=== PATIENT | female | born 1990 | race African-American/Black ===

== ENCOUNTER 2016-07-26 16:18 | Emergency (ER) | payer OTHER ==
[2016-07-26 16:50] VITALS: BMI 37.7
[2016-07-26] MEDS ORDERED: SODIUM CHLORIDE 1,000 ML IV STA (17:30)
[2016-07-26] MEDS ORDERED: ONDANSETRON 4 MG/2 ML VIAL IVPB ONE (17:30)
--- NOTE | 2016-07-26 17:30 | PDOC ---
History of Present Illness - History of Present Illness Initial Comments: 07/26/16 18:13 The patient is a 26 year old female, 15 week . , with no significant past medical history, who presents to the emergency department with headache, vomiting, diarrhea, and abdominal pain for 4 days. She reports her headache is diffuse an intermittent. She reports periumbilical abdominal pain which is constant and non-radiating. 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 She states that neither of her children are sick at home. The patient denies vaginal bleeding. She denies chest pain, shortness of breath, headache and dizziness. She denies fever, chills, nausea, vomit, diarrhea and constipation. She denies dysuria, frequency, urgency and hematuria. Allergies: percocet, shrimp, chocolate Past surgical history: cholecysectomy (2012), Knee (2013, Bunion (2013) Social history: denies toxic habits PCP - Dr. Ho ([facility]) <Sunitha Pimentel - Last Filed: 07/26/16 18:51> <Keira Gerber - Last Filed: 07/26/16 19:26> - General Chief Complaint: Pain, Acute Stated Complaint: 20wks/ABD PAIN/VOMITING Time Seen by Provider: 07/26/16 17:19 Past History <Sunitha Pimentel - Last Filed: 07/26/16 18:51> - Past Medical History Asthma: No Cancer: No Cardiac Disorders: No Diabetes: No HTN: No Psychiatric Problems: Yes (PTSD, Anxiety, Depression) Seizures: No Thyroid Disease: No - Surgical History Cholecystectomy: Yes - Reproductive History (#): 3 Para: 2 Therapeutic (s) & number: No - Psycho/Social/Smoking Cessation Hx Anxiety: Yes Suicidal Ideation: No Smoking History: Never smoked Have you smoked in the past 12 months: No Hx Alcohol Use: No Drug/Substance Use Hx: No Substance Use Type: None Hx Substance Use Treatment: No <Keira Gerber - Last Filed: 07/26/16 19:26> - Past Medical History Allergies/Adverse Reactions: Allergies Allergy/AdvReac Type Severity Reaction Status Date / Time acetaminophen [From Percocet] Allergy Verified 07/26/16 16:50 chocolate flavor Allergy Verified 07/26/16 16:50 oxycodone HCl [From Percocet] Allergy Verified 07/26/16 16:50 shrimp Allergy Verified 07/26/16 16:50 Home Medications: Ambulatory Orders Fluoxetine HCl [Prozac] 40 mg PO DAILY 08/26/15 Quetiapine Fumarate [Seroquel -] 100 mg PO HS 08/26/15 Risperidone [Risperdal] 0.5 mg PO HS 08/26/15 Abd/GI Specific PMHX - Complaint Specific PMHX Colitis: No Diverticulitis: No Gall Bladder Disease: Yes GERD: No Hepatitis: No Irritable Bowel Synd (IBS): No Pancreatitis: No GI Ulcer Disease: No <Keira Gerber - Last Filed: 07/26/16 19:26> Review of Systems - Review of Systems Able to Perform ROS?: Yes Comments:: 07/26/16 18:13 CONSTITUTIONAL: Absent: fever, chills, diaphoresis, generalized weakness, malaise, loss of appetite HEENT: Absent: rhinorrhea, nasal congestion, throat pain, throat swelling, difficulty swallowing, mouth swelling, ear pain, eye pain, visual Changes CARDIOVASCULAR: Absent: chest pain, syncope, palpitations, irregular heart rate, lightheadedness , peripheral edema RESPIRATORY: Absent: cough, shortness of breath, dyspnea with exertion, orthopnea, wheezing, stridor, hemoptysis GASTROINTESTINAL: (+) abdominal pain, nausea, vomiting. Absent: abdominal distension, diarrhea, constipation, melena, hematochezia GENITOURINARY: Absent: dysuria, frequency, urgency, hesitancy, hematuria, flank pain, genital pain MUSCULOSKELETAL: Absent: myalgia, arthralgia, joint swelling SKIN: Absent: rash, itching, pallor HEMATOLOGIC/IMMUNOLOGIC: Absent: easy bleeding, easy bruising, lymphadenopathy, frequent infections ENDOCRINE: Absent: unexplained weight gain, unexplained weight loss, heat intolerance, cold intolerance NEUROLOGIC: Absent: headache, focal weakness or paresthesias, dizziness, unsteady gait, seizure, mental status changes, bladder or bowel incontinence PSYCHIATRIC: Absent: anxiety, depression, suicidal or homicidal ideation, hallucinations. <Sunitha Pimentel - Last Filed: 07/26/16 18:51> *Physical Exam - Vital Signs Last Vital Signs Temp Pulse Resp BP Pulse Ox 98.5 F 81 16 105/61 98 07/26/16 16:47 07/26/16 16:47 07/26/16 16:47 07/26/16 16:47 07/26/16 18:00 <Sunitha Pimentel - Last Filed: 07/26/16 18:51> - Vital Signs Last Vital Signs Temp Pulse Resp BP Pulse Ox 98.5 F 81 16 105/61 96 07/26/16 16:47 07/26/16 16:47 07/26/16 16:47 07/26/16 16:47 07/26/16 16:47 <Keira Gerber - Last Filed: 07/26/16 19:26> ED Treatment Course - LABORATORY CBC & Chemistry Diagram: 07/26/16 18:15 07/26/16 18:15 - RADIOLOGY Radiograph Interpretation: 07/26/16 18:51 US was read by Dr. Mendoza at 18:29 Impression: single live intrauterine gestation of 16 weeks 1 day gestational age - Medications Given in the ED: ED Medications Discontinued Medications Generic Name Dose Route Start Last Admin Trade Name Yessi PRN Reason Stop Dose Admin Ondansetron HCl 4 mg 07/26/16 17:30 07/26/16 17:48 Zofran Injection IVPB 07/26/16 17:31 4 mg ONCE ONE Administration <Sunitha Pimentel - Last Filed: 07/26/16 18:51> - LABORATORY CBC & Chemistry Diagram: 07/26/16 18:15 07/26/16 18:15 <Keira Gerber - Last Filed: 07/26/16 19:26> *DC/Admit/Observation/Transfer <Sunitha Pimentel - Last Filed: 07/26/16 18:51> <Keira Gerber - Last Filed: 07/26/16 19:26> Diagnosis at time of Disposition: Gastroenteritis Qualifiers: Weeks of gestation: 15 weeks Qualified Code(s): Z3A.15 - 15 weeks gestation of - Discharge Dispostion Disposition: HOME Condition at time of disposition: Stable - Referrals Referrals: Kerri Santana [Primary Care Provider] - - Patient Instructions Printed Discharge Instructions: DI for Viral Gastroenteritis -- Adult Additional Instructions: please continue your care return if your symptoms worsen ,if you develop fever or have focal abdominal pain or pelvic cramping or bleeding
[2016-07-26] MEDS ORDERED: ONDANSETRON 4 MG/2 ML VIAL ONE (17:34)
[2016-07-26 18:32] LABS: BASOPHIL 0.8 % (0-2.0); EOSINOPHIL 1.1 % (0-4.5); MCH 30.9 pg (25.7-33.7); MCHC 33.9 g/dl (32.0-36.0); MEAN CELL VOLUME 91.2 fl (80-96); MEAN PLT VOLUME 8.2 fl (7.5-11.1); NEUTROPHILS 62.9 % (42.8-82.8); PLATELET COUNT 242 K/MM3 (134-434)
[2016-07-26 18:56] LABS: ALBUMIN 3.2 g/dl (3.4-5.0); ANION GAP 12 (8-16); BILIRUBIN,TOTAL 0.3 mg/dL (0.2-1.0); CALCIUM 8.5 mg/dL (8.5-10.1); CO2 26 mmol/L (21-32); CREATININE 0.7 mg/dL (0.55-1.02); GLUCOSE,RANDOM 92 mg/dL (74-106); SGOT/AST 13 U/L (15-37); SGPT/ALT 17 U/L (12-78)
[2016-07-26 19:02] LABS: ALK PHOS 49 U/L (45-117)
[2016-07-26 19:34] VITALS: BP 124/70; PULSE 82; TEMP 98.3
== END 2016-07-26 19:34 | disposition home or self-care (01) ==
LOC: JER 16:18
PROC: 3E033GC Introduction of Other Therapeutic Substance into Peripheral Vein, Percutaneous Approach (ICD-10-PCS; principal; 2016-07-26)
DX: O99.89 Other specified diseases and conditions complicating pregnancy, childbirth and the puerperium (principal); K52.9 Noninfective gastroenteritis and colitis, unspecified; R51 Headache; Z3A.16 16 weeks gestation of pregnancy
CPT/HCPCS: 36415; 76815-TC; 80053; 83690; 85025; 96374; 99284-25

== ENCOUNTER 2016-10-23 18:10 | Emergency (ER) | payer OTHER ==
[2016-10-23 18:15] VITALS: BMI 41.3
[2016-10-23 20:34] LABS: URINE APPEARANCE CLEAR; URINE BILIRUBIN NEGATIVE (NEGATIVE); URINE BLOOD NEGATIVE (NEGATIVE); URINE COLOR YELLOW; URINE GLUCOSE (UA) NEGATIVE (NEGATIVE); URINE KETONE NEGATIVE (NEGATIVE); URINE LEUK ESTERASE NEGATIVE (NEGATIVE); URINE NITRITE NEGATIVE (NEGATIVE); URINE PROTEIN NEGATIVE (NEGATIVE); URINE UROBILINOGEN NEGATIVE E.U./dl (0.2-1.0)
[2016-10-23] MEDS ORDERED: LACTATED RINGERS SOLUTION 1,000 ML IV ONE (21:20)
[2016-10-23] MEDS: BETAMET ACET/BETAMET NA PH 30 MG/5 ML VIAL IM SCH (21:30)
[2016-10-23 23:37] VITALS: BP 106/62; PULSE 72; TEMP 97.6
[2016-10-24] MEDS: BETAMET ACET/BETAMET NA PH 30 MG/5 ML VIAL IM SCH (21:04)
== END 2016-10-23 23:05 | disposition home or self-care (01) ==
LOC: JER 18:10
DX: O46.93 Antepartum hemorrhage, unspecified, third trimester (principal); Z3A.29 29 weeks gestation of pregnancy
CPT/HCPCS: 36415; 81003; 82731; 99281-25

== ENCOUNTER 2016-11-15 06:40 | Inpatient (IN) | payer OTHER ==
--- NOTE | 2016-11-15 07:24 | HP ---
Admitting History and Physical - Admission Chief Complaint: pprom 31.3 weeks History of Present Illness: 26 y/o at 31.3 weeks pprom at 615 am, prior 34 week in 2007 and term in 2012. Was seen october 23 for ctx and told pos ffn. Steroid course given at that time. Pt comes today withabove. No bleeding, no ctx, has movements. 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: Alzheimer's, CVA, Dementia, Migraine, Multiple Sclerosis, Peripheral Neuropathy, Parkinson's, Seizure, Syncope, TIA, Vertigo, Other Cardiovascular: No: AFIB, Aneurysm, Aortic Insufficiency, Aortic Stenosis, CAD, CHF, Deep Vein Thrombosis, HTN, Hyperlipdemia, IA, Mitral Insufficiency, Mitral Stenosis, Murmur, Pulmonary Hypertension, Other Pulmonary: No: Asthma, Bronchitis, Cancer, COPD, O2 Dependent, Pneumonia, Previously Intubated, Pulmonary Embolus, Pulmonary Fibrosis, Sleep Apnea, Other Hepatobiliary: No: Cirrhosis, Cholelithiasis, Cholecystitis, Choledocholithiasis , Hepatitis A, Hepatitis B, Hepatitis C, Other Renal/: No: Renal Failure, Renal Inusuff, BPH, Cancer, Hematuria, Hemodialysis , Neurogenic Bladder, Renal Calculi, UTI, Other - Smoking History Smoking history: Never smoked Have you smoked in the past 12 months: No - Alcohol/Substance Use Hx Alcohol Use: No Home Medications - Allergies Allergies/Adverse Reactions: Allergies Allergy/AdvReac Type Severity Reaction Status Date / Time acetaminophen [From Percocet] Allergy Verified 10/23/16 18:15 chocolate flavor Allergy Verified 10/23/16 18:15 oxycodone HCl [From Percocet] Allergy Verified 10/23/16 18:15 shrimp Allergy Verified 10/23/16 18:15 - Home Medications Home Medications: Ambulatory Orders Vit Calc,Iron,Folic [ Vitamins] 1 each PO DAILY 10/23/16 Review of Systems - Review of Systems Constitutional: reports: No Symptoms Eyes: reports: No Symptoms HENT: reports: No Symptoms Neck: reports: No Symptoms Cardiovascular: reports: No Symptoms Respiratory: reports: No Symptoms Gastrointestinal: reports: No Symptoms Genitourinary: reports: No Symptoms Breasts: reports: No Symptoms Reported Musculoskeletal: reports: No Symptoms Integumentary: reports: No Symptoms Neurological: reports: No Symptoms Hematology/Lymphatic: reports: No Symptoms Psychiatric: reports: No Symptoms Physical Examination Constitutional: Yes: Well Nourished Eyes: Yes: WNL HENT: Yes: WNL Neck: Yes: WNL Cardiovascular: Yes: WNL Respiratory: Yes: WNL Gastrointestinal: Yes: WNL ...Rectal Exam: Yes: WNL, Other (closed cervix, breech) Assessment/Plan as above admit to ld an transfer to [facility], [place] antibiotics iv fluids
[2016-11-15] MEDS ORDERED: DEXTROSE 5%-LACTATED RINGERS 1,000 ML IV SCH (07:30)
[2016-11-15] MEDS ORDERED: BETAMET ACET/BETAMET NA PH 30 MG/5 ML VIAL IM ONE (07:32)
[2016-11-15 07:46] VITALS: BP 114/50; PULSE 82; TEMP 97.3; BMI 42.9
[2016-11-15] MEDS ORDERED: AMPICILLIN - 100 ML IVPB SCH (09:00)
[2016-11-15] MEDS ORDERED: ERYTHROMYCIN INJECTION - 250 MG in SODIUM CHLORIDE 100 ML IVPB SCH (09:00)
== END 2016-11-15 08:45 | disposition short-term general hospital (02) | DRG 566 ==
LOC: JDEL 06:40 → JLDR 07:00
PROVIDERS: ADMIT Obstetrics & Gynecology; ATTEND Obstetrics & Gynecology
DX: O42.913 Preterm premature rupture of membranes, unspecified as to length of time between rupture and onset of labor, third trimester (principal); Z3A.31 31 weeks gestation of pregnancy

== ENCOUNTER 2017-09-21 23:16 | Emergency (ER) | payer OTHER ==
[2017-09-21 23:25] VITALS: BP 128/77; PULSE 85; TEMP 98.9; BMI 50.3
--- NOTE | 2017-09-21 23:49 | PDOC ---
Attending Attestation - HPI HPI: 09/21/17 23:51 The patient is a 27 year old female with no significant PMH who presents to the emergency department with a toothache beginning prior to today. She describes the toothache as a sharp sensation localized in the right upper teeth region with occasional shooting radiation to the right orbit. She reports taking Motrin to no relief. She denies fevers or chills. She denies shortness of breath or difficulty breathing. Allergies: Acetaminophen, Oxycodone HCl. Chocolate. Shrimp. <Oni Orellana - Last Filed: 09/21/17 23:51> - Resident Resident Name: Buzz Reyna - ED Attending Attestation I have performed the following: I have examined & evaluated the patient, The case was reviewed & discussed with the resident, I agree w/resident's findings & plan, Exceptions are as noted - Physicial Exam PE: 09/21/17 23:56 *Physical Exam General Appearance: Yes: Appropriately Dressed. mild distress No: Intoxicated HEENT: positive: EOMI, PAMELLA, Normal ENT Inspection, Normal Voice, TMs Normal, Pharynx Normal. negative: Pale Conjunctivae, Photophobia, Scleral Icterus (R), Scleral Icterus (L) Neck: positive: Trachea midline, Normal Thyroid, Supple. negative: Tender, Rigid, Carotid bruit, Stridor, Lymphadenopathy (R), Lymphadenopathy (L), Thyromegaly Respiratory/Chest: positive: Lungs Clear, Normal Breath Sounds. negative: Chest Tender, Respiratory Distress, Accessory Muscle Use, Labored Respiration, RES, Crackles, Rales, Rhonchi, Stridor, Wheezing, Dullness Cardiovascular: positive: Regular Rhythm, Regular Rate, S1, S2. negative: Edema , JVD, Murmur, Bradycardia, Tachycardia Vascular Pulses: Dorsalis-Pedis (R): 2+, Doralis-Pedis (L): 2+ Gastrointestinal/Abdominal: positive: Normal Bowel Sounds, Flat, Soft. negative : Tender, Organomegaly, Pulsatile Mass, Increased Bowel Sounds, Decreased BS, Distended, Guarding, Rebound, Hernia, Hepatomegaly, Spleenomegaly Lymphatic: negative: Adenopathy, Tenderness Musculoskeletal: positive: Normal Inspection. negative: CVA Tenderness, Decreased Range of Motion Extremity: positive: Normal Capillary Refill, Normal Inspection, Normal Range of Motion, Pelvis Stable. negative: Tender, Pedal Edema, Swelling, Erythema Integumentary: positive: Normal Color, Dry, Warm. 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 negative: EOM Palsy, Facial Droop, Sensory Deficit - Medical Decision Making 09/21/17 23:57 Pt treated and released <Duane Coppola - Last Filed: 09/21/17 23:57>
[2017-09-21] MEDS ORDERED: PENICILLIN V POTASSIUM 500 MG TABLET PO ONE (23:50)
--- NOTE | 2017-09-21 23:54 | PDOC ---
History of Present Illness - General Chief Complaint: Toothache Stated Complaint: TOOTHACHE Time Seen by Provider: 09/21/17 23:36 History Source: Patient Exam Limitations: No Limitations - History of Present Illness Initial Comments: 09/21/17 23:47 Patient is a 27F with no significant medical history here today complaining of toothache on a right upper tooth starting today. She describes the pain as shooting to her infraorbital region. She denies fevers, chills, neck pain and difficulty breathing. Patient states that she has a dentist at [facility], has not contacted them yet. Has taken motrin, asking for pain control. Allergic to percocet. States that she takes tylenol without issues. Past History - Past Medical History Allergies/Adverse Reactions: Allergies Allergy/AdvReac Type Severity Reaction Status Date / Time acetaminophen [From Percocet] Allergy Verified 09/21/17 23:21 chocolate flavor Allergy Verified 09/21/17 23:21 oxycodone HCl [From Percocet] Allergy Verified 09/21/17 23:21 shrimp Allergy Verified 09/21/17 23:21 Home Medications: Ambulatory Orders Ibuprofen [Motrin -] 600 mg PO ONCE 09/21/17 Penicillin V Potassium [Pen Vee K -] 500 mg PO BID #14 tablet 09/21/17 Asthma: No Cancer: No Cardiac Disorders: No COPD: No Diabetes: No HTN: No Psychiatric Problems: Yes (PTSD, Anxiety, Depression) Seizures: No Thyroid Disease: No - Surgical History Cholecystectomy: Yes - Reproductive History (#): 3 Para: 2 Therapeutic (s) & number: No - Immunization History Immunization Up to Date: Yes - Suicide/Smoking/Psychosocial Hx Smoking History: Never smoked Have you smoked in the past 12 months: No Hx Alcohol Use: No Drug/Substance Use Hx: No Substance Use Type: None Hx Substance Use Treatment: No Review of Systems - Review of Systems Comments:: 09/21/17 23:54 GENERAL/CONSTITUTIONAL: No fever or chills. No weakness. HEAD, EYES, EARS, NOSE AND THROAT: No change in vision. No ear pain or discharge. No sore throat. CARDIOVASCULAR: No chest pain or shortness of breath RESPIRATORY: No cough, wheezing, or hemoptysis. GASTROINTESTINAL: No nausea, vomiting, diarrhea or constipation. GENITOURINARY: No dysuria, frequency, or change in urination. MUSCULOSKELETAL: No joint or muscle swelling or pain. No neck or back pain. SKIN: No rash NEUROLOGIC: No headache, vertigo, loss of consciousness, or change in strength/ sensation. HEMATOLOGIC/LYMPHATIC: No anemia, easy bleeding, or history of blood clots. ALLERGIC/IMMUNOLOGIC: No hives or skin allergy. *Physical Exam - Vital Signs Last Vital Signs Temp Pulse Resp BP Pulse Ox 98.9 F 85 22 128/77 98 09/21/17 23:24 09/21/17 23:24 09/21/17 23:24 09/21/17 23:24 09/21/17 23:24 - Physical Exam Comments: 09/21/17 23:54 GENERAL: Awake, alert, and fully oriented, in no acute distress HEAD: No signs of trauma, normocephalic, atraumatic EYES: PERRLA, EOMI, sclera anicteric, conjunctiva clear ENT: Auricles normal inspection, hearing grossly normal, nares patent, oropharynx clear without exudates. Moist mucosa. Dark defect in R posterior superior molar with no swelling of gums. Tender. NECK: Normal ROM, supple, no lymphadenopathy, JVD, or masses LUNGS: No distress, speaks full sentences, clear to auscultation bilaterally HEART: Regular rate and rhythm, normal S1 and S2, no murmurs, rubs or gallops, peripheral pulses normal and equal bilaterally. EXTREMITIES: Normal inspection, Normal range of motion, no edema. No clubbing or cyanosis. NEUROLOGICAL: Cranial nerves II through XII grossly intact. Normal speech, normal gait, no focal sensorimotor deficits SKIN: Warm, Dry, normal turgor, no rashes or lesions noted. Medical Decision Making - Medical Decision Making 09/21/17 23:55 Patient is 27F here today with tooth pain. Exam shows defect in right posterior tooth, no signs of apical abscess. Will treat with tylenol and PCN V, discharge with instructions to follow up with dentist. *DC/Admit/Observation/Transfer Diagnosis at time of Disposition: Toothache - Discharge Dispostion Disposition: HOME Condition at time of disposition: Good Admit: No - Referrals - Patient Instructions Printed Discharge Instructions: DI for Dental Pain Additional Instructions: You were seen today in the ED for a toothache caused by an infection in your tooth. Please call your dentist tomorrow for further evaluation of your tooth. You were given a dose of antibiotics to prevent the infection from spreading, a prescription was also sent to your pharmacy. Please take that prescription until it is completed or directed to stop taking it by your dentist. - Post Discharge Activity
[2017-09-21] MEDS ORDERED: ACETAMINOPHEN 325 MG TABLET (FP) PO ONE (23:55)
[2017-09-22] MEDS ORDERED: ACETAMINOPHEN 325 MG TABLET (FP) ONE (00:25)
== END 2017-09-22 00:35 | disposition home or self-care (01) ==
LOC: JER 23:16
DX: K08.89 Other specified disorders of teeth and supporting structures (principal); F43.10 Post-traumatic stress disorder, unspecified; F41.8 Other specified anxiety disorders
CPT/HCPCS: 99282-25

== ENCOUNTER 2018-10-12 09:39 | Emergency (ER) | payer OTHER ==
[2018-10-12 09:52] VITALS: BP 134/89; PULSE 95; TEMP 98.2; BMI 52.3
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
[2018-10-12 10:57] LABS: EOS % 2.1 % (0-4.5); HEMATOCRIT 38.1 % (32.4-45.2); HEMOGLOBIN 12.8 GM/dL (10.7-15.3); LYMPH % 37.1 % (8-40); MCH 29.3 pg (25.7-33.7); MCHC 33.7 g/dl (32.0-36.0); MONO % 7.9 % (3.8-10.2); NEUT % 51.9 % (42.8-82.8); PLATELET COUNT 266 K/MM3 (134-434); RBC 4.38 M/mm3 (3.60-5.2); RDW 14.8 % (11.6-15.6); WHITE BLOOD COUNT 6.2 K/mm3 (4.0-10.0)
[2018-10-12 11:42] LABS: BLOOD UREA NITROGEN 9 mg/dL (7-18); CREATININE 0.7 mg/dL (0.55-1.3); GLUCOSE,RANDOM 76 mg/dL (74-106)
[2018-10-12 11:43] LABS: ALBUMIN 3.6 g/dl (3.4-5.0); ALK PHOS 81 U/L (45-117); ANION GAP 5 MMOL/L (8-16); BILIRUBIN,TOTAL 0.2 mg/dL (0.2-1); CALCIUM 8.8 mg/dL (8.5-10.1); CHLORIDE 107 mmol/L (98-107); CHOLESTEROL 133 mg/dL (50-200); CO2 28 mmol/L (21-32); GAMMA GLUTAMYL TRANSPEPTIDASE 20 U/L (5-85); LDH 201 U/L (84-246); PHOSPHOROUS 2.6 mg/dL (2.5-4.9); POTASSIUM 3.8 mmol/L (3.5-5.1); SGOT/AST 11 U/L (15-37); SGPT/ALT 18 U/L (13-61); SODIUM 141 mmol/L (136-145); TOT PROT 7.1 g/dl (6.4-8.2); TRIGLYCERIDES 91 mg/dL (0-150); URIC ACID 5.2 mg/dL (2.6-7.2)
[2018-10-12] MEDS ORDERED: AMOX TR/POT CLAV 875MG/125MG TABLETS (FP) PO ONE (12:01)
[2018-10-12] MEDS ORDERED: AMOX TR/POT CLAV 875MG/125MG TABLETS (FP) ONE (12:03)
[2018-10-12] MEDS ORDERED: BACITRACIN 15 GM TUBE TOPICAL OINTMENT ONE (12:03)
[2018-10-13 07:14] LABS: HBsAG SCREEN Negative (Negative)
== END 2018-10-12 13:44 | disposition home or self-care (01) ==
LOC: JERFT 09:39
DX: S69.82XA Other specified injuries of left wrist, hand and finger(s), initial encounter (principal); Z77.21 Contact with and (suspected) exposure to potentially hazardous body fluids; S61.255A Open bite of left ring finger without damage to nail, initial encounter; S61.452A Open bite of left hand, initial encounter; Y04.1XXA Assault by human bite, initial encounter; Y93.F9 Activity, other caregiving; Y92.198 Other place in other specified residential institution as the place of occurrence of the external cause; Y99.0 Civilian activity done for income or pay; Y07.59 Other non-family member, perpetrator of maltreatment and neglect
CPT/HCPCS: 36415; 73130-TC-LT-FY; 80053; 82465; 82977; 83615; 84100; 84478; 84550; 85025; 86317; 86706; 86803; 87340; 87389; 99282-25

== ENCOUNTER 2019-02-12 17:13 | Emergency (ER) | payer OTHER ==
[2019-02-12 17:31] VITALS: BP 139/78; PULSE 86; TEMP 98.1; BMI 46.0
--- NOTE | 2019-02-12 17:31 | PDOC ---
Rapid Medical Evaluation Chief Complaint: Pain Time Seen by Provider: 02/12/19 17:30 Medical Evaluation: Allergies Allergy/AdvReac Type Severity Reaction Status Date / Time acetaminophen [From Percocet] Allergy Verified 09/21/17 23:21 chocolate flavor Allergy Verified 09/21/17 23:21 oxycodone HCl [From Percocet] Allergy Verified 09/21/17 23:21 shrimp Allergy Verified 09/21/17 23:21 02/12/19 17:30 This patient had a brief in-person evaluation in triage cc: left ankle pain since this am reports no injury awaken with pain, worse with weight bearing HPI: NAD unlabored breathing + swelling of left ankle orders: xray, uric acid This patient will proceed to ED for further evaluation. Discharge Disposition - Diagnosis Ankle pain - Referrals - Patient Instructions - Post Discharge Activity
[2019-02-12] MEDS ORDERED: KETOROLAC TROMETHAMINE 60 MG/2 ML VIAL IM ONE (17:46)
[2019-02-12] MEDS ORDERED: KETOROLAC TROMETHAMINE 60 MG/2 ML VIAL ONE (17:48)
--- NOTE | 2019-02-12 17:51 | PDOC ---
History of Present Illness - General Chief Complaint: Pain Stated Complaint: L/ANKLE PAIN Time Seen by Provider: 02/12/19 17:30 - History of Present Illness Initial Comments: 02/12/19 17:50 28-year-old female presents for evaluation of left ankle pain no trauma. No systemic symptoms. 1 day of pain. Past History - Past Medical History Allergies/Adverse Reactions: Allergies Allergy/AdvReac Type Severity Reaction Status Date / Time acetaminophen [From Percocet] Allergy Verified 02/12/19 17:31 chocolate flavor Allergy Verified 02/12/19 17:31 oxycodone HCl [From Percocet] Allergy Verified 02/12/19 17:31 shrimp Allergy Verified 02/12/19 17:31 Home Medications: Ambulatory Orders Amox-Tr/K Cl [Augmentin 875Mg Tablet] 1 tab PO BID #20 tablet 10/12/18 Asthma: No Cancer: No Cardiac Disorders: No COPD: No Diabetes: No HTN: No Psychiatric Problems: Yes (PTSD, Anxiety, Depression) Seizures: No Thyroid Disease: No - Surgical History Cholecystectomy: Yes - Reproductive History (#): 3 Para: 2 Therapeutic (s) & number: No - Immunization History Immunization Up to Date: Yes - Suicide/Smoking/Psychosocial Hx Smoking History: Never smoked Have you smoked in the past 12 months: No Information on smoking cessation initiated: No Hx Alcohol Use: No Drug/Substance Use Hx: No Substance Use Type: None Hx Substance Use Treatment: No Review of Systems - Review of Systems Constitutional: No: Fever Musculoskeletal: Yes: Joint Pain *Physical Exam - Vital Signs Last Vital Signs Temp Pulse Resp BP Pulse Ox 98.1 F 86 19 139/78 99 02/12/19 17:29 02/12/19 17:29 02/12/19 17:29 02/12/19 17:29 02/12/19 17:29 - Physical Exam Comments: 02/12/19 17:49 Left ankle skin color and temperature are normal range of motion is decreased and painful. There is no tenderness about the knee proximal fibula or along its distal course. No tenderness about the medial or lateral malleolus base of the fifth metatarsal or navicular. Mild tenderness about the AJL. No instability or gross sensorimotor deficits neurovascularly intact thighs and calves are soft and nontender. Medical Decision Making - Medical Decision Making 02/12/19 17:49 Atraumatic Ankle pain. Most likely an acute gout attack. We'll treat with Toradol and Medrol Dosepak follow-up with orthopedic *DC/Admit/Observation/Transfer Diagnosis at time of Disposition: Ankle pain, Gout attack - Discharge Dispostion Disposition: HOME Condition at time of disposition: Stable Decision to Admit order: No - Referrals Referrals: Sameer Elam DO [Staff Physician] - - Patient Instructions Printed Discharge Instructions: Gout, DI for Gout, Higher Vitamin C Intake Associated With Lower Risk of Gout Additional Instructions: This is most likely a gout attack. In the emergency room he was treated with a long-acting anti-inflammatory. Do not take any Advil Motrin or ibuprofen while at home. Start the Medrol Dosepak in the morning take the medication as directed. He may take additional Tylenol as directed. Return to the emergency room for worsening symptoms and follow-up with orthopedic surgery in 1-2 days without fail for further evaluation and treatment options. - Post Discharge Activity
== END 2019-02-12 18:16 | disposition home or self-care (01) ==
LOC: JERFT 17:13
PROC: 3E0233Z Introduction of Anti-inflammatory into Muscle, Percutaneous Approach (ICD-10-PCS; principal; 2019-02-12)
DX: M10.9 Gout, unspecified (principal)
CPT/HCPCS: 96372; 99282-25

== ENCOUNTER 2019-09-03 05:57 | Day surgery (SDC) | payer OTHER ==
[2019-08-22 18:51] VITALS: BMI 44.6
[2019-09-03] MEDS ORDERED: MIDAZOLAM HCL 2 MG/2 ML SINGLE DOSE VIAL ONE (07:59)
[2019-09-03] MEDS ORDERED: PROPOFOL 20 ML ONE (08:00)
[2019-09-03] MEDS ORDERED: ROCURONIUM BROMIDE 50 MG/5 ML SYRINGE ONE ×2 (08:00→09:27)
[2019-09-03] MEDS ORDERED: SUCCINYLCHOLINE CHLORIDE 200 MG/10 ML SYRINGE ONE (08:16)
[2019-09-03] MEDS ORDERED: HEPARIN NA (PORCINE) 5,000 UNITS/ML 1ML VIAL ONE (08:37)
[2019-09-03] MEDS ORDERED: NEOSTIGMINE METHYLSULFATE 0.5 MG/ML - 10 ML MDV ONE (13:15)
[2019-09-03] MEDS ORDERED: DEXAMETHASONE SOD PHOSPHATE 4 MG/1 ML VIAL ONE (13:15)
[2019-09-03] MEDS ORDERED: GLYCOPYRROLATE 0.2 MG/1 ML VIAL ONE (13:15)
[2019-09-03] MEDS ORDERED: ONDANSETRON 4 MG/2 ML VIAL ONE (13:15)
[2019-09-03] MEDS ORDERED: LIDOCAINE HCL/PF 2% SDV 5ML VIAL ONE (13:15)
[2019-09-03] MEDS ORDERED: ONDANSETRON 4 MG/2 ML VIAL IVPB PRN (13:46)
[2019-09-03] MEDS ORDERED: oxyCODONE HCL 5 MG TABLET PO PRN ×3 (13:46→13:54)
[2019-09-03] MEDS ORDERED: PROMETHAZINE HCL 25 MG/1 ML VIAL IVPUSH PRN (13:54)
[2019-09-03] MEDS ORDERED: ONDANSETRON 4 MG/2 ML VIAL IVPUSH PRN (13:54)
[2019-09-03] MEDS ORDERED: LACTATED RINGERS SOLUTION 1,000 ML IV SCH ×2 (14:00)
[2019-09-03] MEDS ORDERED: ACETAMINOPHEN 1000 MG/100 ML VIAL (NON FORMULARY) IVPB ONE ×2 (14:30→18:10)
[2019-09-03] MEDS ORDERED: traMADol HCL 50 MG TABLET PO PRN (14:31)
[2019-09-03] MEDS ORDERED: CEFAZOLIN 1 GM/D5W 1 GM/50 ML BAG IVPB SCH (15:00)
[2019-09-03] MEDS ORDERED: ceFAZolin SODIUM 1 GM VIAL IVPB ONE (15:20)
[2019-09-03] MEDS ORDERED: traMADol HCL 50 MG TABLET ONE (15:47)
[2019-09-03] MEDS ORDERED: ACETAMINOPHEN INJECTION 100 ML IVPB ONE (18:12)
[2019-09-03 19:56] VITALS: BP 114/78; PULSE 81; TEMP 98.7
== END 2019-09-03 19:56 | disposition home or self-care (01) ==
LOC: FASU 05:57
PROVIDERS: ATTEND Plastic Surgery
PROC: 0HBV0ZZ Excision of Bilateral Breast, Open Approach (ICD-10-PCS; principal; 2019-09-03 08:55)
DX: N62 Hypertrophy of breast (principal)
CPT/HCPCS: 81025; 88305-TC; 94760; J0131; J1644

== ENCOUNTER 2020-04-04 09:29 | Emergency (ER) | payer OTHER ==
[2020-04-04 09:35] VITALS: BMI 45.4
--- OUTSIDE RECORDS SUMMARY | 2020-04-04 09:53 | XMS ---
:1990 Author Organization [facility] Care Team Providers Name Role Phone Ringstad, Colleen Unavailable Unavailable Ringstad, Colleen Unavailable Unavailable Ringstad, Colleen Unavailable Unavailable Ringstad, Colleen Unavailable Unavailable Ringstad, Colleen Unavailable Unavailable Ringstad, Colleen Unavailable Unavailable Ringstad, Colleen Unavailable Unavailable Ringstad, Colleen Unavailable Unavailable Ringstad, Colleen Unavailable Unavailable Ringstad, Colleen Unavailable Unavailable Ringstad, Colleen Unavailable Unavailable Levar Barron Unavailable [phone] Champion, Bridget Unavailable Unavailable Champion, Bridget Unavailable Unavailable Champion, Bridget Unavailable Unavailable Champion, Bridget Unavailable Unavailable Champion, Bridget Unavailable Unavailable Champion, Bridget Unavailable Unavailable Champion, Bridget Unavailable Unavailable Champion, Bridget Unavailable Unavailable Champion, Bridget Unavailable Unavailable Champion, Bridget Unavailable Unavailable ED STAFF PHYSICIAN, STAFF Unavailable Unavailable Coloka-Kump, Rodika DO Unavailable Unavailable Coloka-Kump, Rodika DO Unavailable Unavailable Coloka-Kump, Rodika DO Unavailable Unavailable Coloka-Kump, Rodika DO Unavailable Unavailable Coloka-Kump, Rodika DO Unavailable Unavailable Coloka-Kump, Rodika DO Unavailable Unavailable Coloka-Kump, Rodika DO Unavailable Unavailable Coloka-Kump, Rodika DO Unavailable Unavailable Coloka-Kump, Rodika DO Unavailable Unavailable Coloka-Kump, Rodika DO Unavailable Unavailable Coloka-Kump, Rodika DO Unavailable Unavailable Coloka-Kump, Rodika DO Unavailable Unavailable Coloka-Kump, Rodika DO Unavailable Unavailable Coloka-Kump, Rodika DO Unavailable Unavailable Coloka-Kump, Rodika DO Unavailable Unavailable Coloka-Kump, Rodika DO Unavailable Unavailable Coloka-Kump, Rodika DO Unavailable Unavailable HERACLIO GARCIA Unavailable Unavailable Braulio, Aqib Unavailable Unavailable Braulio, Aqib Unavailable Unavailable Braulio, Aqib Unavailable Unavailable ED STAFF PHYSICIAN Unavailable Unavailable Aszalos, Kerri Blanca Unavailable Unavailable Aszalos, Blanca Unavailable Unavailable Aszalos, Blanca Unavailable Unavailable Aszalos, Blanca Unavailable Unavailable Aszalos, Blanca Unavailable Unavailable Aszalos, Blanca Unavailable Unavailable Aszalos, Blanca Unavailable Unavailable Aszalos, Blanca Unavailable Unavailable Aszalos, Blanca Unavailable Unavailable Ekechukwu Unavailable [phone] Ekech[place]wu Unavailable [phone] Marta Schneider MD Unavailable Unavailable Marta Schneider MD Unavailable Unavailable Marta Schneider MD Unavailable Unavailable Marta Schneider MD Unavailable Unavailable Marta Schneider MD Unavailable Unavailable Marta Schneider MD Unavailable Unavailable Marta Schneider MD Unavailable Unavailable Marta Schneider MD Unavailable Unavailable Marta Schneider MD Unavailable Unavailable aMrta Schneider MD Unavailable Unavailable Marta Schneider MD Unavailable Unavailable Marta Schneider MD Unavailable Unavailable Marta Schneider MD Unavailable Unavailable Marta Schneider MD Unavailable Unavailable Marta Schneider MD Unavailable Unavailable ZAHEER Clark Unavailable Unavailable Aszalos, Blanca Unavailable Unavailable Aszalos, Blanca Unavailable Unavailable Aszalos, Blanca Unavailable Unavailable Aszalos, Blanca Unavailable Unavailable Aszalos, Blanca Unavailable Unavailable Aszalos, Blanca Unavailable Unavailable Aszalos, Blanca Unavailable Unavailable Aszalos, Blanca Unavailable Unavailable Aszalos, Blanca Unavailable Unavailable Wyatt, Marta MD Unavailable Unavailable Wyatt, Marta MD Unavailable Unavailable Wyatt, Marta MD Unavailable Unavailable Wyatt, Marta MD Unavailable Unavailable Wyatt, Marta MD Unavailable Unavailable Wyatt, Marta MD Unavailable Unavailable Wyatt, Marta MD Unavailable Unavailable Wyatt, Marta MD Unavailable Unavailable Wyatt, Marta MD Unavailable Unavailable Wyatt, Marta MD Unavailable Unavailable Wyatt, Marta MD Unavailable Unavailable Wyatt, Marta MD Unavailable Unavailable Wyatt, Marta MD Unavailable Unavailable Wyatt, Marta MD Unavailable Unavailable Wyatt, Marta MD Unavailable Unavailable Nlam Unavailable [phone] Nlam Unavailable [phone] Sami Unavailable Unavailable Sami Unavailable Unavailable ZUNASSIGNED Unavailable Unavailable Cici Unavailable [phone] Byron Unavailable [phone] Cici Unavailable [phone] Sheldon KEY MD Unavailable [phone] Sheldon KEY MD Unavailable [phone] ZUNASSIGNED@, Unavailable Unavailable Re-disclosure Warning The records that you are about to access may contain information from federally- assisted alcohol or drug abuse programs. If such information is present, then the following federally mandated warning applies: This information has been disclosed to you from records protected by federal confidentiality rules (42 CFR part 2). The federal rules prohibit you from making any further disclosure of this information unless further disclosure is expressly permitted by the written consent of the person to whom it pertains or as otherwise permitted by 42 CFR part 2. A general authorization for the release of medical or other information is NOT sufficient for this purpose. The Federal rules restrict any use of the information to criminally investigate or prosecute any alcohol or drug abuse patient.The records that you are about to access may contain highly sensitive health information, the redisclosure of which is protected by Article 27-F of the [facility] Public Health law. If you continue you may haveaccess to information: Regarding HIV / AIDS; Provided by facilities licensed or operated by the [facility] Office of Mental Health; or Provided by the [facility] Office for People With Developmental Disabilities. If such information is present, then the following [facility] mandated warning applies: This information has been disclosed to you from confidential records which are protected by state law. State law prohibits you from making any further disclosure of this information without the specific written consent of the person to whom it pertains, or as otherwise permitted by law. Any unauthorized further disclosure in violation of state law may result in a fine or half-way sentence or both. A general authorization for the release of medical or other information is NOT sufficient authorization for further disclosure. Family History Family Member Family Member Family Member Date of Description Data Source(s) Name Gender Status Status Unknown Female Problem 04/16/2019 NEXTGEN ([facility]) [facility] Unknown Female Problem 04/16/2019 NEXTGEN ([facility] (finding) 12:00:00 AM [facility]) Encounters Encounter Providers Location Date Indications Data Source(s ) Emergency Attender: ED STAFF H 04/03/2020 [facility] Yun PHYSICIANAttender: 04:46:00 PM [facility] STAFF ED STAFF EDT - PHYSICIANAdmitter: ED 04/03/2020 STAFF 09:17:00 PM PHYSICIANReferrer: EDT ZUNASSIGNED Patient discharged. Outpatient Attender: 04/03/2020 [facility] ZUNASSIGNEDAdmitter: 03:50:00 PM EDT Medical ZUNASSIGNEDReferrer: Cent er [id number] ZUNASSIGNED@, Outpatient Attender: Dionne Sethi 04/03/2020 latrice Yun MDAdmitter: Dionne Schneider 03:24:00 PM EDT Medical MDReferrer: Dionne Fink MD Outpatient Attender: 04/03/2020 [facility] ZUNASSIGNEDAdmitter: 12:00:00 AM EDT Medical [id number] [place] ZUNASSIGNED@,Referrer: [id number] ZUNASSIGNED@, Outpatient Attender: 03/27/2020 [facility] ZUNASSIGNEDAdmitter: 04:02:00 PM EDT Medical ZUNASSIGNEDReferrer: Cent er [id number] ZUNASSIGNED@, Outpatient Attender: 03/27/2020 [facility] ZUNASSIGNEDAdmitter: 12:00:00 AM EDT Medical [id number] Center ZUNASSIGNED@,Referrer: [id number] ZUNASSIGNED@, Outpatient Attender: Kerri Sethi 03/13/2020 [facility] AszalosAdmitter: Kerri 11:45:00 AM EDT Medical AszalosReferrer: Kerri Carol martinezzeeshan Molinathaelizabeth OutpatientOFFICE Attender: Chalino Steiner Family 03/13/2020 NEXTGEN /OUTPATIENT [facility] 11:45:00 AM EDT ([facility] VISIT, EST Center - 03/13/2020 [facility] 11:45:00 AM EDT Medical Center) Outpatient 03/13/2020 [facility] 10:00:00 AM EDT Medical Center Outpatient 03/13/2020 [facility] 12:00:00 AM EDT Medical Center Outpatient 01/24/2020 [facility] 10:24:00 AM EDT Medical Center Outpatient Attender: Colleen Seth[facility] 10:19:00 AM EDT Medical RingstadReferrer: Colleen Fink [facility] OutpatientOFFICE Attender: Chalino Dallasluciana Wiseman 01/24/2020 ON LICENSE OF [facility] /OUTPATIENT [facility] 10:19:00 AM EDT ([facility] VISIT, EST Center - 01/24/2020 [facility] 10:19:00 AM EDT Medical Center) Outpatient 01/24/2020 [facility] 12:00:00 AM EDT Medical Center Attender: Kerri Jessemuna Family 01/23/2020 [facility] 12:20:00 PM EDT ([facility] - 01/23/2020 [facility] 12:20:00 PM EDT Medical Center) Emergency Attender: STAFF ED STAFF H-ER 01/22/2020 [facility] PHYSICIAN 07:51:00 PM EDT Medical - 01/22/2020 [place] 11:40:00 PM EDT Patient discharged. Outpatient 01/22/2020 [facility] 12:40:00 PM EDT Medical C enter Outpatient 01/22/2020 [facility] 12:00:00 AM EDT Medical C enter Outpatient 01/16/2020 [facility] 04:14:00 PM EDT Medical C enter Outpatient 01/16/2020 [facility] 12:00:00 AM EDT Medical C enter Outpatient 11/29/2019 [facility] 03:12:00 PM EDT Medical C enter Outpatient Attender: Bridget Sethi 11/29/2019 [facility] tati VelezAdmitter: 12:56:00 PM EDT Medic al Center Bridget ChampionReferrer: Bridget Champion OutpatientOFFICE/OU Attender: [facility] 11/29/2019 NE XTGEN ([facility] TPATIENT VISIT, [facility] 12:56:00 PM EDT [facility] Ekechukwu 11/29/2019 Center) 12:56:00 PM EDT Outpatient 11/29/2019 [facility] 12:00:00 AM EDT Medical C enter Outpatient 11/22/2019 [facility] 09:24:00 AM EDT Medical C enter Outpatient 11/22/2019 [facility] 12:00:00 AM EDT Medical C enter Attender: [facility] 11/20/2019 [facility]GEN ( [facility] 09[facility]00 AM EDT [facility] Ekechukwu 11/20/2019 Center) 09:51:00 AM EDT Outpatient Attender: Kerri Sethi 11/15/2019 [facility] Selenedmitter: 01:10:00 PM EDT Med ica Center Kerri Rojaseferrer: Kerri Santana OutpatientOFFICE/OU Attender: [facility] 11/15/2019 NE XTGEN ([facility] TPATIENT VISIT, [facility] 01:10:00 PM EDT [facility] Ekechukwu 11/15/2019 Center) 01:10:00 PM EDT Outpatient 11/15/2019 [facility] 09:31:00 AM EDT Medical C enter Outpatient 11/15/2019 [facility] 12:00:00 AM EDT Medical C enter Attender: [facility] 10/10/2019 NEXTGEN ( [facility] Mary Chung MD [place] 10:55:00 AM EDT [facility] 10/10/2019 Center) 10:55:00 AM EDT Attender: [facility] 09/17/2019 NEXTGEN ( int [facility] 01:09:00 PM EDT [facility] 09/17/2019 Center) 01:09:00 PM EDT Outpatient 09/15/2019 [facility] 03:48:00 PM EDT Medical C enter Outpatient 09/15/2019 [facility] 08:43:00 AM EDT Medical C enter Outpatient 09/15/2019 [facility] 12:00:00 AM EDT Medical C enter Attender: [facility] 09/11/2019 NEXTTIFFANIE N ([facility] 10:38:00 AM [facility] [place]) MD Mary Chung 10:38:00 AM EDT Outpatient 08/14/2019 [facility] 11:17:00 AM EST Medical C enter Outpatient Attender: [facility] 08/14/2019 [facility] AszalosAdmitter: 09:39:00 AM EST [facility] ElaynesReferrer: Kerri Santana OutpatientOFFICE/OU Attender: [facility] 08/14/2019 NEXTGEN ([facility] TPATIENT VISIT, [facility] 09:39:00 AM [facility]14[facility]2019 [place]) MD Mary Chung 09:39:00 AM EST Outpatient 08/14/2019 [facility] 12:00:00 AM EST Medical C enter Attender: [facility] 08/10/2019 NEXT ( [facility] Mary Chung MD [place] 01:54:00 PM EST - [facility] 08/10/2019 [place]) 01:54:00 PM EST Attender: 08/07/2019 NEXT (Camilo Chung MD 12:22:00 PM EST - [facility] 08/07/2019 [place]) 12:22:00 PM EST Outpatient 08/07/2019 [facility] 10:14:00 AM EST Medical C enter Outpatient 08/07/2019 [facility] 12:00:00 AM EST Medical C enter Attender: [facility] 08/01/2019 NEXTGE N ([facility] [place] 04:48:00 PM EST - [facility] Medical 08/01/2019 [place]) 04:48:00 PM EST Outpatient 07/25/2019 [facility] 11:36:00 AM EST Medical C enter Outpatient Attender: [facility] 07/25/2019 [facility] AszasAdmitter: 08:57:00 AM EST [facility] ElaynesReferrer: Kerri Santana OutpatientOFFICE/OU Attender: [facility] 07/25/2019 NEXTGEN ([facility] TPATIENT VISIT, [facility] 08:57:00 AM EST - Yun Medical GarciaAttender: 07/25/2019 Center) MD Mary Chung 08:57:00 AM EST Outpatient 07/25/2019 [facility] 12:00:00 AM EST Medical C enter Attender: [facility] 07/23/2019 IRAJ ( [facility] Mary Chung MD [place] 02:55:00 PM EST - [facility] 07/23/2019 [place]) 02:55:00 PM EST Outpatient 07/19/2019 [facility] 09:33:00 AM EST Medical C enter Outpatient 07/19/2019 [facility] 12:00:00 AM EST Medical C enter Outpatient Attender: Bridget Sethi 07/18/2019 [facility] VelezAdmitter: 12:45:00 PM EST Medic al Center Bridget ChampionReferrer: Bridget Champion OutpatientOFFICE/OU Attender: [facility] 07/18/2019 [facility] ([facility] TPATIENT VISIT, [facility] 12:45:00 PM [facility] 07/18/2019 [place]) MD Mary Chung 12:45:00 PM EST Outpatient 07/18/2019 [facility] 09:13:00 AM EST Medical C enter Outpatient 07/18/2019 [facility] 12:00:00 AM EST Medical C enter Attender: [facility] 07/17/2019 [facility] ( [facility] Mary Chung MD [place] 09:17:00 AM EST - [facility] 07/17/2019 [place]) 09:17:00 AM EST Outpatient 07/04/2019 [facility] 09:49:00 AM EST Medical C enter Outpatient Attender: Robert Sethi 07/04/2019 [facility] 08:37:00 AM EST Medical Center DOAdmitter: Robert [facility] DOReferrer: Robert [place] DO OutpatientOFFICE/OU Attender: [facility] 07/04/2019 [facility] ([facility] TPATIENT VISIT, EST [place] [facility] 08:37:00 AM [facility] Medical GarciaAttender: 07/04/2019 [place]) MD Mary Chung 08:37:00 AM EST Outpatient 07/04/2019 [facility] 12:00:00 AM EST Medical C enter Attender: [facility] 07/01/2019 IRAJ ( [facility] Mary Chung MD [place] 10:10:00 AM EST - [facility] 07/01/2019 Center) 10:10:00 AM EST Outpatient Attender: HERACLIO Sethi 06/25/2019 [facility] 01:02:00 PM EST Medical C enter JOHNNYAdmitter: HERACLIO CHRISTIANO HERACLIOReferrer: HERACLIO ALVARADO HERACLIO OutpatientOFFICE/OU Attender: [facility] 06/25/2019 IRAJ ([facility] TPATIENT VISIT, EST [place] [facility] 01:02:00 PM EST - [facility] Medical GarciaAttender: 06/25/2019 Center) MD Mary Chung 01:02:00 PM EST Outpatient 06/25/2019 [facility] 11:14:00 AM EST Medical C enter Outpatient 06/25/2019 [facility] 12:00:00 AM EST Medical C enter Attender: [facility] 06/21/2019 IRAJ ( [facility] Mary Chung MD [place] 09:44:00 AM EST - [facility] 06/21/2019 [place]) 09:44:00 AM EST Outpatient 06/08/2019 [facility] 02:36:00 PM EST Medical C enter Outpatient Attender: Kerri Sethi [facility]08[facility]2019 [facility] Selenedmitter: 10:22:00 AM EST Med ical Center Kerri MolinalosReferrer: Kerri Santana OutpatientOFFICE/OU Attender: [facility] 06/08/2019 IRAJ ([facility] TPATIENT VISIT, EST [place] [facility] 10:22:[address] [facility] GarciaAttender: 06/08/2019 Center) MD Mary Chung 10:22:00 AM EST Outpatient 06/08/2019 [facility] 12:00:00 AM EST Medical C enter Attender: [facility] 06/06/2019 IRAJ ( [facility] Mary Chung MD [place] 01:52:00 PM EST - [facility] Medical 06/06/2019 Center) 01:52:00 PM EST Attender: Dionne [facility] 05/23/2019 CHRISTIANO Soler ([facility] [place] 12:41:[address] [facility] 05/23/2019 Center) 12:41:00 PM EST Emergency Attender: H 05/18/2019 [facility] ZAHEER SANTOS 11:47:00 AM EST - M edical Center KAttender: STAFF 05/18/2019 ED STAFF 04:10:00 PM EST PHYSICIANAdmitter : ZAHEER Clark Patient discharged. 05/18/2019 [facility] 12:00:00 AM EST Medical C enter Outpatient 04/18/2019 [facility] 10:38:00 AM EDT Medical C enter Outpatient 04/18/2019 [facility] 12:00:00 AM EDT Medical C enter Outpatient Attender: HERACLIO Sethi 04/16/2019 [facility] CHRISTIANO 01:35:00 PM EDT Medical C enter JOHNNYAdmitter: HERACLIO PULLIAMReferrer: HERACLIO PULLIAM OutpatientOFFICE/OU Attender: [facility] 04/16/2019 [facility] ([facility] TPATIENT VISIT, EST [facility] 01:35:00 PM EDT [facility] 04/16/2019 Center) 01:35:00 PM EDT Outpatient 04/16/2019 [facility] 09:21:00 AM EDT Medical C enter Outpatient 04/16/2019 [facility] 12:00:00 AM EDT Medical C enter Outpatient 03/29/2019 [facility] 04:47:00 PM EDT Medical C enter Outpatient Attender: Jossie 03/29/2019 [facility] Colleen 09:29:00 AM EDT Medical C enter JacobtadAdmitter: Colleen Harrisoneferrer: Colleen Escobedo OutpatientOFFICE/OU Attender: [facility] 03/29/2019 [facility] [place] [facility] 09:29:00 AM EDT [facility] GarciaAttender: 03/29/2019 Center) MD Mary Chung 09:29:00 AM EDT Outpatient 03/29/2019 [facility] 12:00:00 AM EDT Medical C enter Attender: [facility] 03/27/2019 ON LICENSE OF [facility] ([facility] 03:08:00 PM EDT [facility] 03/27/2019 Center) 03:08:00 PM EDT Outpatient 03/21/2019 [facility] 09:28:00 AM EDT Medical C enter Outpatient 03/21/2019 [facility] 12:00:00 AM EDT Medical C enter Outpatient 02/21/2019 [facility] 11:52:00 AM EDT Medical C enter Outpatient Attender: Bridget Sethi 02/21/2019 [facility] kae WheatleyezAdmitter: 09:10:00 AM EDT Medic al Center Bridget ChampionReferrer: Bridget Champion OutpatientOFFICE/OU Attender: [facility] 02/21/2019 NEXTGEN ([facility] VISIT, [facility] 09:10:00 AM EDT - [facility] GarciaAttender: 02/21/2019 Center) MD Mary Chung 09:10:00 AM EDT MD Outpatient 02/21/2019 [facility] 12:00:00 AM EDT Medical C enter Outpatient 02/14/2019 [facility] 12:49:00 PM EDT Medical C enter Outpatient Attender: Kerri Sethi 02/14/2019 [facility] Mortondmitter: 10:33:00 AM EDT Med ical [place] Kerri Villarerrer: Kerri Santana Attender: [facility] 02/14/2019 NEXTGEN ( [facility] Mary Chung [facility] 10:33:00 AM EDT - [facility] 02/14/2019 Center) 10:33:00 AM EDT Outpatient 02/14/2019 [facility] 12:00:00 AM EDT Medical C enter Outpatient 01/18/2019 [facility] 12:00:00 AM EDT - Medical Center 10/06/2012 12:00:00 AM EDT Outpatient Attender: Kerri Sethi 01/04/2019 [facility] Selenedmitter: 01:08:00 PM EDT Med ical [place] Kerri Onealer: Kerri Santana Immunizations Vaccine Date Status Description Data Source(s) New in 2011. IIV4 06/25/2019 completed Influenza, Injectable, NEXTGEN ([facility] 12:00:00 AM EST [facility]) Source: New Immunization Record As of February 1999, 04/16/2019 12:00:00 completed Hep B, adult , 3 NEXTGEN ([facility] a 2-dose hepatitis B AM EDT dose [facility] Medical schedule for Center) adolescents (11-15 year olds) was FDA approved for [employer]'s Recombivax HB adult formulation. Use code 43 for the 2-dose. This code should be used for any use of standard adult formulation of hepatitis B vaccine. Source: New Immunization Record New in 2011. 03/29/2019 12:00:00 completed Influenza, Injectable , NEXTGEN ([facility] IIV4 AM EDT [facility]) Note: PATIENT REFUSED ; Source: New Immu nization Record Medications Medication Brand Start Product Dose Route Administrative Pharmacy [facility] Indications Reaction Description Data Name Date Form Instructions Instructions Source(s) 24 HR Qsymia 24 HR NEXTGE N Phentermine 3.75 2020 ed phentermine ( [facility] 3.75 MG / mg-23 12:00: 3.75 MG / [facility] topiramate mg 00 AM topiramate Me dical 23 MG capsul EDT 23 MG Center) Extended e, Extended Release extend Release Oral Oral ed Capsule Capsule releas [Qsymia] [Qsymia] e Qsymia 3.75 mg-23 mg capsule, extended release Medication administered onsite 24 HR Qsymia 03/13/2020 active 24 HR NEX TGEN Phentermine 3.75 mg-23 12:00:00 AM phentermine ([facility] 3.75 MG / mg EDT 3.75 MG / Duglas hs topiramate 23 capsule, topiram ate 23 Medical MG Extended extended MG Extend ed Center) Release Oral release Release O ral Capsule Capsule [Qsymia] [Qsymia] Qsymia 3.75 mg-23 mg capsule, extended release Fluconazole Diflucan 03/13/2020 1. ORAL active f luconazole NEXTGEN 150 MG Oral 150 mg 12:00:00 AM 00 150 MG Oral ([facility] Tablet tablet EDT {t Tablet Yun [Diflucan] ab [Diflucan] Med ical Diflucan 150 le Center) mg tablet t} Fluconazole Diflucan 03/13/2020 1. ORAL completed fluconazole NEXTGEN 150 MG Oral 150 mg 12:00:00 AM 00 150 MG Oral ([facility] Tablet tablet EDT {t Tablet Yun [Diflucan] ab [Diflucan] Med ical Diflucan 150 le Center) mg tablet t} Medication administered onsite Lidocaine lidocaine 3 % 01/24/2020 TOPICAL active apply by NEXTGEN Hydrochloride lotion 12:00:00 AM to pical ([facility] 30 MG/ML EDT route 3 Yun Topical Lotion times ever y Medical lidocaine 3 % day to the Center) lotion affected area(s) Metronidazole metronidazole 11/29/2019 1 ORAL completed take 1 NEXTGEN 500 MG Oral 500 mg tablet 12:00:00 AM {t tablet by ([facility] Tablet EDT bl oral route Yun metronidazole } every 12 Me dical 500 mg tablet hours Cente r) Easy Touch needles, 11/15/2019 completed use as NEXTGEN Hypodermic disposable 12:00:00 AM d irected ([facility] Needle 32 gauge EDT Deniz phs x 11/02" [facility]) 3 ML Victoza 2-Markel 11/15/2019 active 3 M L NEXTGEN liraglutide 6 0.6 mg/0.1 mL 12:00:00 AM liraglutide ([facility] MG/ML Pen (18 mg/3 mL) EDT 6 MG/ML Pen Yun Injector subcutaneous Injector Medical [Victoza] pen injector [Victoz a] [place]) Victoza 2-Markel 0.6 mg/0.1 mL (18 mg/3 mL) subcutaneous pen injector Fluconazole 150 fluconazole 11/15/2019 1. ORAL active take 1 NEXTGEN MG Oral Tablet 150 mg tablet 12:00:00 AM 00 tablet by ( fluconazole 150 EDT {t oral rout e Yun mg tablet ab once Medical le [place]) t} 28 mg PNV 06/25/2019 1 ORAL completed take 1 NEXTGEN iron-800 mcg no.95/ferrous 12:00:00 AM {c capsule by ([facility] tablet fum/folic ac EST ap oral route Yun brooke once for 1 [facility]) } 3 ML Victoza 2-Markel 06/08/2019 completed 3 ML NEXTGEN liraglutide 6 0.6 mg/0.1 mL 12:00:00 AM liraglutide ([facility] MG/ML Pen (18 mg/3 mL) EST 6 MG/ML Pen Yun Injector subcutaneous Injector Medical [Victoza] pen injector [Victoz a] Center) Victoza 2-Markel 0.6 mg/0.1 mL (18 mg/3 mL) subcutaneous pen injector Fluconazole 150 Diflucan 150 06/08/2019 completed Fluconazole NEXTGEN MG Oral Tablet mg tablet 12:00:00 AM 150 MG Oral ([facility] [Diflucan] EST Tablet Yun Diflucan 150 mg [Diflucan ] Medical tablet Center) 3 ML Victoza 2-Markel 01/18/2019 completed 3 ML NEXTGEN liraglutide 6 0.6 mg/0.1 mL 12:00:00 AM liraglutide ([facility] MG/ML Pen (18 mg/3 mL) EDT 6 MG/ML Pen Yun Injector subcutaneous Injector Medical [Victoza] pen injector [Victoz a] [place]) Victoza 2-Markel 0.6 mg/0.1 mL (18 mg/3 mL) subcutaneous pen injector Easy Touch needles, 11/20/2018 completed use as NEXTGEN Hypodermic disposable 12:00:00 AM d irected ([facility] Needle 32 gauge EDT [facility]) Isopropyl Alcohol Wipes 11/20/2018 completed use as NEXTGEN Alcohol 0.7 12:00:00 AM direct ed ([facility] ML/ML Medicated EDT [facility] Pad Alcohol Medical Wipes Center) Sertraline 50 Zoloft 50 mg 02/27/2018 1. ORAL completed Sertraline NEXTGEN MG Oral Tablet tablet 12:00:00 AM 00 5 0 MG Oral ([facility] [Zoloft] Zoloft EDT {t Tablet Tangela sephs 50 mg tablet bl [Zoloft] Med ical } Center) pt needs to see pmd for additional meds after this script Insurance Providers Payer name Policy type Policy ID Covered Covered green party's Policy P julito / Coverage green party ID relationship to Camacho Inf ormation type camacho MVP MEDICAID [id number] SP [id number] O O MVP/HHP O [id number] 01 [id number] MVP/HHP [id number] self [id number] O MVP MEDICAID [id number] SP [id number] [id number] SP [id number] [facility] [id number] SP [id number] MEDICAID [id number] SP [id number] AFFINITY [id number] SP [id number] PENDING [id number] SP [id number] WC/NF ONLY Problems, Conditions, and Diagnoses Code Display Name Description Problem Type Effective Data Dates Source(s) E66.9 Obesity, unspecified OBESITY, UNSPECIFIED Diagnosis 03/13 [facility] 11:45:00 AM [facility] R19.7 Diarrhea, DIARRHEA, Diagnosis 03/13/2020 [facility] unspecified UNSPECIFIED 11:45:00 AM [facility] B37.3 Candidiasis of vulva CANDIDIASIS OF VULVA Diagnosis 03/13 [facility] and vagina AND VAGINA 11:45:00 AM [facility] Z71.89 Other specified OTHER SPECIFIED Diagnosis 01/24/2020 [facility] t counseling COUNSELING 10:19:00 AM [facility] Z71.3 Dietary counseling DIETARY COUNSELING Diagnosis 0 [facility] and surveillance AND SURVEILLANCE 10:19:00 AM [facility] Z68.41 Body mass index BODY MASS INDEX Diagnosis 01/24/2020 Tameka t (BMI) 40.0-44.9, (BMI) 40.0-44.9, 10:19:00 AM [facility] adult ADULT [facility] Z11.4 Encounter for ENCOUNTER FOR Diagnosis 01/24/2020 [facility] screening for human SCREENING FOR HUMAN 10:19:0 0 AM [facility] immunodeficiency IMMUNODEFICIENCY [facility] dical virus [HIV] VIRUS Center Z11.3 Encounter for ENCNTR SCREEN FOR Diagnosis 01/24/2020 [facility] screening for INFECTIONS W SEXL 10:19:00 AM Carmelo ephelizabeth infections with a MODE OF TRANSMISS [facility] sexual Cent er mode of transmission M79.662 Pain in left lower PAIN IN LEFT LOWER Diagnosis 0 [facility] leg LEG 10:19:00 AM [facility] R60.0 Localized edema LOCALIZED EDEMA Diagnosis 01/22/2020 Tameka t 07:51:00 PM [facility] M79.672 Pain in left foot PAIN IN LEFT FOOT Diagnosis 01/22/2020 [facility] 07:51:00 PM [facility] N76.0 Acute vaginitis ACUTE VAGINITIS Diagnosis 11/29/2019 Tameka t 12:56:00 PM [facility] Z71.9 Counseling, COUNSELING, Diagnosis 11/15/2019 [facility] unspecified UNSPECIFIED 01:10:00 PM [facility] R73.03 Prediabetes PREDIABETES Diagnosis 11/15/2019 [facility] 01:10:00 PM [facility] Z02.9 Encounter for ENCOUNTER FOR Diagnosis 08/14/2019 [facility] administrative ADMINISTRATIVE 09:39:00 AM [facility] examinations, EXAMINATIONS, EST Medical unspecified UNSPECIFIED Center M62.442 Contracture of CONTRACTURE OF Diagnosis 07/18/2019 [facility] muscle, left hand MUSCLE, LEFT HAND 12:45:00 PM [facility] Z12.4 Encounter for ENCOUNTER FOR Diagnosis 07/04/2019 [facility] screening for SCREENING FOR 08:37:00 AM [facility] malignant neoplasm MALIGNANT NEOPLASM EST Medical of cervix OF CERVIX Center Z71.2 Person consulting PERSON CONSULTING Diagnosis 07/04/2019 [facility] for explanation of FOR EXPLANATION OF 08:37:00 AM [facility] examination or test EXAM OR TEST EST Med ical findings FINDINGS Center Z23 Encounter for ENCOUNTER FOR Diagnosis 06/25/2019 [facility] immunization IMMUNIZATION 01:02:00 PM [facility] M54.9 Dorsalgia, DORSALGIA, Diagnosis 06/08/2019 unspecified UNSPECIFIED 10:22:00 AM [facility] R10.9 Unspecified UNSPECIFIED Diagnosis 05/18/2019 [facility] abdominal pain ABDOMINAL PAIN 11:47:00 AM [facility] R11.2 Nausea with NAUSEA WITH Diagnosis 05/18/2019 vomiting, VOMITING, 11:47:00 AM [facility] unspecified UNSPECIFIED [facility] Z28.21 Immunization not IMMUNIZATION NOT Diagnosis 03/29/2019 Sa int carried out because CARRIED OUT BECAUSE 09:29:0 0 AM [facility] of patient refusal OF PATIENT REFUSAL [facility] Z70.9 Sex counseling, SEX COUNSELING, Diagnosis 02/21/2019 Tameka t unspecified UNSPECIFIED 09:10:00 AM [facility] Surgeries/Procedures Procedure Description Date Indications Data Source(s) OFFICE/OUTPATIENT VISIT, 03/13/2020 NEX TGEN ([facility] [place]) 12:00:00 AM EDT OFFICE/OUTPATIENT VISIT, 01/24/2020 NEX TGEN ([facility] 01/24[facility] [place]) 12:00:00 AM EDT ROUTINE VENIPUNCTURE 01/24/2020 NEXTGEN ([facility] 01/24[facility] [place]) 12:00:00 AM EDT OFFICE/OUTPATIENT VISIT, 11/29/2019 NEX TGEN ([facility] EST [facility]00:[facility] 11/29/[facility] [place]) 12:00:00 AM EDT OFFICE/OUTPATIENT VISIT, 11/15/2019 NEX TGEN ([facility] EST 12:00:00 AM EDT [facility] - 11/15/2019 Center) 12:00:00 AM EDT OFFICE/OUTPATIENT VISIT, 08/14/2019 NEX TGEN ([facility] 12:00:00 AM [facility] - 08/14/2019 Center) 12:00:00 AM EST OFFICE/OUTPATIENT VISIT, 07/25/2019 NEX TGEN ([facility] 12:00:00 AM [facility] - 07/25/2019 Center) 12:00:00 AM EST OFFICE/OUTPATIENT VISIT, 07/18/2019 NEX TGEN ([facility] 12:00:00 AM [facility] - 07/18/2019 Center) 12:00:00 AM EST OFFICE/OUTPATIENT VISIT, 07/04/2019 NEX TGEN ([facility] 12:00:00 AM [facility] 07/04/2019 Center) 12:00:00 AM EST Influenza, Injectable, 3 06/25/2019 NEX TGEN ([facility] Yrs Or Older 12:00:00 AM [facility] 06/25/2019 [place]) 12:00:00 AM EST Immunization 06/25/2019 NEXTGEN ([facility] Administration 12:00:00 AM EST [facility] dicmo - 06/25/2019 Center) 12:00:00 AM EST OFFICE/OUTPATIENT VISIT, 06/25/2019 NEX TGEN ([facility] 12:00:00 AM [facility] 06/25/2019 Center) 12:00:00 AM EST SPECIMEN HANDLING 06/25/2019 NEXTGEN (S aint 12:00:00 AM [facility] 06/25/2019 Center) 12:00:00 AM EST OFFICE/OUTPATIENT VISIT, 06/08/2019 NEX TGEN ([facility] 12:00:00 AM EST [facility] - 06/08/2019 Center) 12:00:00 AM EST HEP B VACCINE, ADULT, IM 04/16/2019 NEX TGEN ([facility] 12:00:00 AM EDT Immunization 04/16/2019 NEXTGEN [facility] 12:00:00 AM EDT OFFICE/OUTPATIENT VISIT, 04/16/2019 NEX TGEN ([facility] EST 12:00:00 AM EDT [facility] - 04/16/2019 Center) 12:00:00 AM EDT OFFICE/OUTPATIENT VISIT, 03/29/2019 NEX TGEN ([facility] EST 12:00:00 AM EDT [facility] - 03/29/2019 Center) 12:00:00 AM EDT OFFICE/OUTPATIENT VISIT, 02/21/2019 NEX TGEN ([facility] EST 12:00:00 AM EDT [facility] - 02/21/2019 Center) 12:00:00 AM EDT Results ID Date Data Source [id number] 04/03/2020 06:43:00 PM EDT [facility] -0400 Name Value Range Interpretation Description Data Sup porting Code Source(s) Document(s ) Lactate 0.7-2.0 <content [facility] [Mass/volum styleCode="Bold Medical e] in Serum ">Lactic Acid Center or Plasma </content>0.9 MMOLL<content styleCode="Ital ics"> (0.7-2.0 MMOLL)</content > ID Date Data Source Liver 04/03/2020 06:13:00 PM EDT [facility] Profile.[id number] Name Value Range Interpretation Description Data Sup porting Code Source(s) Document(s ) Aspartate 14-36 <content [facility] aminotransferase styleCode="Bold"> [facility] [Enzymatic Aspartate Medical activity/volume] Aminotransferase Center in Serum or Plasma (AST) </content>18 IU/L<content styleCode="Italic s"> (14-36 IU/L)</content> UNK 0.0-0.3 <content [facility] styleCode="Bold"> Yun Bilirubin, Direct Medical </content>< 0.2 Center MG/DL<content styleCode="Italic s"> (0.0-0.3 MG/DL)</content> Alkaline 38-126 <content [facility] phosphatase styleCode="Bold"> Yun [Enzymatic Alkaline Medical activity/volume] Phosphatase (ALP) Cente r in Serum or Plasma </content>66 IU/L<content styleCode="Italic s"> (38-126 IU/L)</content> Bilirubin.total 0.2-1.3 <content [facility] [Mass/volume] in styleCode="Bold"> [facility] Serum or Plasma Bilirubin Total Medical </content>0.3 Center MG/DL<content styleCode="Italic s"> (0.2-1.3 MG/DL)</content> Alanine 7-30 <content [facility] aminotransferase styleCode="Bold"> [facility] [Enzymatic Alanine Medical activity/volume] Aminotransferase Center in Serum or Plasma (ALT) </content>13 IU/L<content styleCode="Italic s"> (7-30 IU/L)</content> Albumin 3.5-5.0 <content [facility] [Mass/volume] in styleCode="Bold"> [facility] Serum or Plasma Albumin Medical </content>4.3 Center G/DL<content styleCode="Italic s"> (3.5-5.0 G/DL)</content> ID Date Data Source HematologyRou.[id number] 04/03/2020 06:13:00 PM EDT [facility] 0400 Name Value Range Interpretation Description Data Sup porting Code Source(s) Document(s ) Hematocrit 36.0-46. <content [facility] [Volume 0 styleCode="Bold Yun Fraction] of ">Hematocrit Medical Blood by </content>39.5 Center Automated count %<content styleCode="Ital ics"> (36.0-46.0 %)</content> Hemoglobin 12.3-16. <content [facility] [Mass/volume] in 0 styleCode="Bold Yun Blood ">Hemoglobin Medical </content>12.9 Center G/DL<content styleCode="Ital ics"> (12.3-16.0 G/DL)</content> Erythrocytes 4.0-5.1 <content [facility] [#/volume] in styleCode="Bold Yun Blood by ">Red Blood Medical Automated count Cell Count Center </content>4.56 MCUMM<content styleCode="Ital ics"> (4.0-5.1 MCUMM)</content > Erythrocyte mean 80.0-100 <content [facility] corpuscular .0 styleCode="Bold Yun volume [Entitic ">Mean Medical volume] by Corpuscular Center Automated count Volume </content>86.6 FL<content styleCode="Ital ics"> (80.0-100.0 FL)</content> Leukocytes 4.4-11.0 <content [facility] [#/volume] in styleCode="Bold Yun Blood by ">White Blood Medical Automated count Cell Count Center </content>7.73 KCUMM<content styleCode="Ital ics"> (4.4-11.0 KCUMM)</content > Erythrocyte 11.5-14. <content [facility] distribution 5 styleCode="Bold Yun width [Ratio] by ">Red Cell Medical Automated count Distribution Center Width </content>14.2 %<content styleCode="Ital ics"> (11.5-14.5 %)</content> Platelets 130-400 <content [facility] [#/volume] in styleCode="Bold Yun Blood by ">Platelet Medical Automated count Count Center </content>317 KCUMM<content styleCode="Ital ics"> (130-400 KCUMM)</content > Erythrocyte mean 26.0-34. <content [facility] corpuscular 0 styleCode="Bold Yun hemoglobin ">Mean Medical [Entitic mass] Corposcular Center by Automated Hemoglobin count </content>28.3 PG<content styleCode="Ital ics"> (26.0-34.0 PG)</content> Erythrocyte mean 32.0-37. <content [facility] corpuscular 0 styleCode="Bold Yun hemoglobin ">Mean Corpus. Medical concentration Hgb Center [Mass/volume] by Concentration Automated count (MCHC) </content>32.7 G/DL<content styleCode="Ital ics"> (32.0-37.0 G/DL)</content> UNK 0 <content [facility] styleCode="Bold Yun ">Nucleated Red Medical Blood Cell Center </content>0.0 /100<content styleCode="Ital ics"> (0 /100)</content> UNK 0.0 <content [facility] styleCode="Bold Yun ">Nucleated Red Medical Blood Cell Center Count </content>0.00 KCUMM<content styleCode="Ital ics"> (0.0 KCUMM)</content > Platelet mean 8.0-11.0 <content [facility] volume [Entitic styleCode="Bold Yun volume] in Blood ">Mean Platelet Medical by Automated Volume Center count </content>10.4 FL<content styleCode="Ital ics"> (8.0-11.0 FL)</content> ID Date Data Source GFR(Creatinine).[id number] 04/03/2020 06:13:00 PM EDT [facility] 0-0400 Name Value Range Interpretation Code Description Data Delia rce(s) Supporting Document(s ) UNK > 60 <content [facility] Malcolm styleCode="Bold"> Medical Cent er EGFR </content>126 GFR<content styleCode="Italic s"> (> 60 GFR)</content> ID Date Data Source MROUTINECCDA.[id number] 04/03/2020 06:13:00 PM EDT [facility] -0400 Name Value Range Interpretation Description Data Sup porting Code Source(s) Document(s ) UNK 30-110 <content [facility] Yun styleCode="Bold Medical ">Amylase Center </content>37 IU/L<content styleCode="Ital ics"> (30-110 IU/L)</content> Lipase 23-300 <content [facility] Yun [Enzymatic styleCode="Bold Medical activity/vo ">Lipase Center lume] in </content>51 Serum or IU/L<content Plasma styleCode="Ital ics"> (23-300 IU/L)</content> ID Date Data Source [facility].[id number] 04/03/2020 06:13:00 PM EDT [facility] Name Value Range Interpretation Description Data Sup porting Code Source(s) Document(s ) Carbon dioxide, 22-30 <content [facility] total styleCode="Bold"> Yun [Moles/volume] in Carbon Dioxide Medical Serum or Plasma </content>28 Center MEQ/L<content styleCode="Italic s"> (22-30 MEQ/L)</content> Sodium 137-145 <content [facility] [Moles/volume] in styleCode="Bold"> Deniz phs Serum or Plasma Sodium Medical </content>139 Center MEQ/L<content styleCode="Italic s"> (137-145 MEQ/L)</content> Potassium 3.5-5.3 <content [facility] [Moles/volume] in styleCode="Bold"> Deniz phs Serum or Plasma Potassium Medical </content>4.0 Center MEQ/L<content styleCode="Italic s"> (3.5-5.3 MEQ/L)</content> Chloride 98-107 <content [facility] [Moles/volume] in styleCode="Bold"> Deniz phs Serum or Plasma Chloride Medical </content>105 Center MEQ/L<content styleCode="Italic s"> (98-107 MEQ/L)</content> UNK 7-17 <content [facility] styleCode="Bold"> Yun BUN </content>8 Medical MG/DL<content Center styleCode="Italic s"> (7-17 MG/DL)</content> Calcium 8.4-10. <content [facility] [Mass/volume] in 2 styleCode="Bold"> [facility] Serum or Plasma Calcium Medical </content>9.6 Center MG/DL<content styleCode="Italic s"> (8.4-10.2 MG/DL)</content> Glucose 74-106 <content [facility] [Mass/volume] in styleCode="Bold"> [facility] hs Serum or Plasma Glucose Medical </content>78 Center MG/DL<content styleCode="Italic s"> (74-106 MG/DL)</content> UNK > 60 <content [facility] styleCode="Bold"> Yun EGFR Medical </content>126 Center GFR<content styleCode="Italic s"> (> 60 GFR)</content> Creatinine 0.5-1.3 <content [facility] [Mass/volume] in styleCode="Bold"> [facility] hs Serum or Plasma Creatinine Medical </content>0.7 Center MG/DL<content styleCode="Italic s"> (0.5-1.3 MG/DL)</content> Alanine 7-30 <content [facility] aminotransferase styleCode="Bold"> [facility] [Enzymatic Alanine Medical activity/volume] Aminotransferase Center in Serum or Plasma (ALT) </content>13 IU/L<content styleCode="Italic s"> (7-30 IU/L)</content> Aspartate 14-36 <content [facility] aminotransferase styleCode="Bold"> [facility] [Enzymatic Aspartate Medical activity/volume] Aminotransferase Center in Serum or Plasma (AST) </content>18 IU/L<content styleCode="Italic s"> (14-36 IU/L)</content> Alkaline 38-126 <content [facility] phosphatase styleCode="Bold"> Yun [Enzymatic Alkaline Medical activity/volume] Phosphatase (ALP) Cente r in Serum or Plasma </content>66 IU/L<content styleCode="Italic s"> (38-126 IU/L)</content> Albumin 3.5-5.0 <content [facility] [Mass/volume] in styleCode="Bold"> [facility] Serum or Plasma Albumin Medical </content>4.3 Center G/DL<content styleCode="Italic s"> (3.5-5.0 G/DL)</content> Bilirubin.total 0.2-1.3 <content [facility] [Mass/volume] in styleCode="Bold"> [facility] Serum or Plasma Bilirubin Total Medical </content>0.3 Center MG/DL<content styleCode="Italic s"> (0.2-1.3 MG/DL)</content> ID Date Data Source Microbiology.[id number] 03/14/2020 01:45:00 PM EDT [facility] 400 Name Value Range Interpretation Code Description Data Delia rce(s) Supporting Document(s ) UNK <content [facility] styleCode="Bold"> Medical Cent er Source1 </content>Stool (Reference Range: not available)
ID Date Data Source Liver 01/24/2020 12:08:00 PM EDT [facility] Profile.[id number] Name Value Range Interpretation Description Data Sup porting Code Source(s) Document(s ) Aspartate 14-36 <content [facility] aminotransferase styleCode="Bold"> [facility] [Enzymatic Aspartate Medical activity/volume] Aminotransferase Center in Serum or Plasma (AST) </content>18 IU/L<content styleCode="Italic s"> (14-36 IU/L)</content> Alkaline 38-126 <content [facility] phosphatase styleCode="Bold"> Yun [Enzymatic Alkaline Medical activity/volume] Phosphatase (ALP) Cente r in Serum or Plasma </content>62 IU/L<content styleCode="Italic s"> (38-126 IU/L)</content> Bilirubin.total 0.2-1.3 <content [facility] [Mass/volume] in styleCode="Bold"> [facility] Serum or Plasma Bilirubin Total Medical </content>0.4 Center MG/DL<content styleCode="Italic s"> (0.2-1.3 MG/DL)</content> Alanine 7-30 <content [facility] aminotransferase styleCode="Bold"> [facility] [Enzymatic Alanine Medical activity/volume] Aminotransferase Center in Serum or Plasma (ALT) </content>11 IU/L<content styleCode="Italic s"> (7-30 IU/L)</content> Albumin 3.5-5.0 <content [facility] [Mass/volume] in styleCode="Bold"> [facility] Serum or Plasma Albumin Medical </content>4.0 Center G/DL<content styleCode="Italic s"> (3.5-5.0 G/DL)</content> ID Date Data Source LIPID.[id number] 01/24/2020 12:08:00 PM EDT [facility] Center Name Value Range Interpretation Description Data Sup porting Code Source(s) Document(s ) Triglyceride < 150 <content [facility] [Mass/volume] in styleCode="Mariangel Lozanos Serum or Plasma d">Triglycerid [facility] Center </content>77 MG/DL<content styleCode="Nicole lics"> (< 150 MG/DL)</conten t> UNK < 100 Above high normal <content Saint styleCode="Mariangel Yun d">LDL-Cholest [facility] Center </content>110 MG/DL H<content styleCode="Nicole lics"> (< 100 MG/DL)</conten t> UNK > 60 Below low normal <content Saint styleCode="Mariangel Malcolm d">HDL- Medical Cholesterol Center </content>36 MG/DL L<content styleCode="Nicole lics"> (> 60 MG/DL)</conten t> Cholesterol -<200 <content [facility] [Mass/volume] in styleCode="Mariangel Malcolm Serum or Plasma d">Cholesterol Medical </content>161 Center MG/DL<content styleCode="Nicole lics"> (-<200 MG/DL)</conten t> ID Date Data Source Hormones.[id number] 01/24/2020 12:08:00 PM EDT [facility] Name Value Range Interpretation Description Data Sup porting Code Source(s) Document(s ) Thyroxine (T4) 0.78-2.1 <content [facility] free 9 styleCode="Mariangel Malcolm [Mass/volume] d">T4 Free Medical in Serum or </content>1.12 Center Plasma NG/DL<content styleCode="Nicole lics"> (0.78-2.19 NG/DL)</conten t> Thyrotropin 0.465-4. <content [facility] [Units/volume] 68 styleCode="Mariangel Malcolm in Serum or d">Thyroid Medical Plasma by Stimulating Center Detection Hormone limit <= 0.05 </content>1.15 mIU/L MIU/L<content styleCode="Nicole lics"> (0.465-4.68 MIU/L)</conten t> ID Date Data Source HematologyRou.[id number] 01/24/2020 12:08:00 PM EDT [facility] 0400 Name Value Range Interpretation Description Data Sup porting Code Source(s) Document(s ) Erythrocytes 4.0-5.1 <content [facility] [#/volume] in styleCode="Sunil [facility] Blood by ">Red Blood Medical Automated count Cell Count Center </content>4.38 MCUMM<content styleCode="Ital ics"> (4.0-5.1 MCUMM)</content > Leukocytes 4.4-11.0 <content [facility] [#/volume] in styleCode="Bold Yun Blood by ">White Blood Medical Automated count Cell Count Center </content>6.42 KCUMM<content styleCode="Ital ics"> (4.4-11.0 KCUMM)</content > Erythrocyte mean 26.0-34. <content [facility] corpuscular 0 styleCode="Bold Yun hemoglobin ">Mean Medical [Entitic mass] Corposcular Center by Automated Hemoglobin count </content>27.9 PG<content styleCode="Ital ics"> (26.0-34.0 PG)</content> Erythrocyte mean 80.0-100 <content [facility] corpuscular .0 styleCode="Bold Yun volume [Entitic ">Mean Medical volume] by Corpuscular Center Automated count Volume </content>86.1 FL<content styleCode="Ital ics"> (80.0-100.0 FL)</content> Hemoglobin 12.3-16. Below low normal <content [facility] [Mass/volume] in 0 styleCode="Bold Yun Blood ">Hemoglobin Medical </content>12.2 Center G/DL L<content styleCode="Ital ics"> (12.3-16.0 G/DL)</content> Hematocrit 36.0-46. <content [facility] [Volume 0 styleCode="Bold Yun Fraction] of ">Hematocrit Medical Blood by </content>37.7 Center Automated count %<content styleCode="Ital ics"> (36.0-46.0 %)</content> Platelets 130-400 <content Saint [#/volume] in styleCode="Bold Yun Blood by ">Platelet Medical Automated count Count Center </content>294 KCUMM<content styleCode="Ital ics"> (130-400 KCUMM)</content > Erythrocyte mean 32.0-37. <content [facility] corpuscular 0 styleCode="Bold Yun hemoglobin ">Mean Corpus. Medical concentration Hgb Center [Mass/volume] by Concentration Automated count (MCHC) </content>32.4 G/DL<content styleCode="Ital ics"> (32.0-37.0 G/DL)</content> Erythrocyte 11.5-14. Above high <content [facility] distribution 5 normal styleCode="Bold Yun width [Ratio] by ">Red Cell Medical Automated count Distribution Center Width </content>14.7 % H<content styleCode="Ital ics"> (11.5-14.5 %)</content> Platelet mean 8.0-11.0 <content Saint volume [Entitic styleCode="Bold Yun volume] in Blood ">Mean Platelet Medical by Automated Volume Center count </content>10.2 FL<content styleCode="Ital ics"> (8.0-11.0 FL)</content> UNK 1.0-4.8 <content [facility] styleCode="Bold Yun ">Lymphocyte Medical Count Center </content>3.19 KCUMM<content styleCode="Ital ics"> (1.0-4.8 KCUMM)</content > Neutrophils 36-66 <content Saint [#/volume] in styleCode="Bold Yun Blood by ">Neutrophil Medical Automated count </content>39.8 Center %<content styleCode="Ital ics"> (36-66 %)</content> Lymphocytes 24.0-44. Above high <content Saint [#/volume] in 0 normal styleCode="Bold Yun Blood by ">Lymphocyte Medical Automated count </content>49.7 Center % H<content styleCode="Ital ics"> (24.0-44.0 %)</content> UNK 1.6-7.3 <content [facility] styleCode="Bold Yun ">Neutrophil Medical Count Center </content>2.56 KCUMM<content styleCode="Ital ics"> (1.6-7.3 KCUMM)</content > Eosinophils 0-5.0 <content Saint [#/volume] in styleCode="Bold Yun Blood by ">Eosinophil Medical Automated count </content>2.8 Center %<content styleCode="Ital ics"> (0-5.0 %)</content> Monocytes 3.0-10.0 <content Saint [#/volume] in styleCode="Bold Yun Blood by ">Monocyte Medical Automated count </content>6.9 Center %<content styleCode="Ital ics"> (3.0-10.0 %)</content> UNK 0.0-0.6 <content [facility] styleCode="Bold Yun ">Eosinophil Medical Count Center </content>0.18 KCUMM<content styleCode="Ital ics"> (0.0-0.6 KCUMM)</content > UNK 0.2-0.9 <content [facility] styleCode="Bold Yun ">Monocyte Medical Count Center </content>0.44 KCUMM<content styleCode="Ital ics"> (0.2-0.9 KCUMM)</content > UNK 0 <content [facility] styleCode="Bold Yun ">Nucleated Red Medical Blood Cell Center </content>0.0 /100<content styleCode="Ital ics"> (0 /100)</content> UNK 0.0-0.3 <content [facility] styleCode="Bold Yun ">Basophil Medical Count Center </content>0.03 KCUMM<content styleCode="Ital ics"> (0.0-0.3 KCUMM)</content > Basophils 0.0-1.0 <content Saint [#/volume] in styleCode="Bold Yun Blood by ">Basophil Medical Automated count </content>0.5 Center %<content styleCode="Ital ics"> (0.0-1.0 %)</content> UNK 0.0 <content [facility] styleCode="Bold Yun ">Nucleated Red Medical Blood Cell Center Count </content>0.00 KCUMM<content styleCode="Ital ics"> (0.0 KCUMM)</content > UNK < 1 <content Saint styleCode="Bold Yun ">Immature Medical Granulocyte Center Ratio </content>0.3 %<content styleCode="Ital ics"> (< 1 %)</content> UNK 0-0.1 <content [facility] styleCode="Bold Yun ">Immature Medical Granulocyte Center Count </content>0.02 KCUMM<content styleCode="Ital ics"> (0-0.1 KCUMM)</content > ID Date Data Source GFR(Creatinine).[id number] 01/24/2020 12:08:00 PM EDT [facility] 0-0400 Name Value Range Interpretation Code Description Data Delia rce(s) Supporting Document(s ) UNK > 60 <content [facility] styleCode="Bold"> Medical Cent er EGFR </content>108 GFR<content styleCode="Italic s"> (> 60 GFR)</content> ID Date Data Source CHMROUTINECCDA.[id number] 01/24/2020 12:08:00 PM EDT [facility] -0400 Name Value Range Interpretation Description Data Sup porting Code Source(s) Document(s ) Protein 6.3-8.2 <content [employer] Yun [Mass/volum styleCode="Bold Medical e] in Serum ">Total Protein Center or Plasma </content>7.0 G/DL<content styleCode="Ital ics"> (6.3-8.2 G/DL)</content> UNK >= 1.0 <content [facility] Yun styleCode="Bold Medical ">AG Ratio Center </content>1.3 <content styleCode="Ital ics"> (>= 1.0 )</content> UNK 4.2-5.8 Above high normal <content [place] styleCode="Bold Medical ">Hemoglobin Center A1C </content>6.0 % H<content styleCode="Ital ics"> (4.2-5.8 %)</content> UNK 2.3-3.5 <content [facility] Yun styleCode="Bold Medical ">Globulin Center </content>3.0 G/DL<content styleCode="Ital ics"> (2.3-3.5 G/DL)</content> ID Date Data Source [employer]Markers.[id number] 01/24/2020 12:08:00 PM EDT [facility] -0400 Name Value Range Interpretation Description Data Sup porting Code Source(s) Document(s ) Creatine 30-135 <content [facility] kinase styleCode="Bold Medical [Enzymatic ">CK Center activity/vol </content>97 ume] in IU/L<content Serum or styleCode="Ital Plasma ics"> (30-135 IU/L)</content> ID Date Data Source [facility].[id number] 01/24/2020 12:08:00 PM EDT [facility] Name Value Range Interpretation Description Data Sup porting Code Source(s) Document(s ) UNK 7-17 <content Saint styleCode="Bold"> Yun BUN </content>11 Medical MG/DL<content Center styleCode="Italic s"> (7-17 MG/DL)</content> Chloride 98-107 <content [facility] [Moles/volume] in styleCode="Bold"> [facility] Serum or Plasma Chloride Medical </content>103 Center MEQ/L<content styleCode="Italic s"> (98-107 MEQ/L)</content> Potassium 3.5-5.3 <content [facility] [Moles/volume] in styleCode="Bold"> Deniz [facility] Serum or Plasma Potassium Medical </content>4.5 Center MEQ/L<content styleCode="Italic s"> (3.5-5.3 MEQ/L)</content> Sodium 137-145 <content [facility] [Moles/volume] in styleCode="Bold"> Deniz [facility] Serum or Plasma Sodium Medical </content>139 Center MEQ/L<content styleCode="Italic s"> (137-145 MEQ/L)</content> Carbon dioxide, 22-30 <content [facility] total styleCode="Bold"> Yun [Moles/volume] in Carbon Dioxide Medical Serum or Plasma </content>30 Center MEQ/L<content styleCode="Italic s"> (22-30 MEQ/L)</content> Creatinine 0.5-1.3 <content [facility] [Mass/volume] in styleCode="Bold"> [place] hs Serum or Plasma Creatinine Medical </content>0.8 Center MG/DL<content styleCode="Italic s"> (0.5-1.3 MG/DL)</content> UNK > 60 <content [facility] styleCode="Bold"> Yun EGFR Medical </content>108 Center GFR<content styleCode="Italic s"> (> 60 GFR)</content> Calcium 8.4-10. <content [facility] [Mass/volume] in 2 styleCode="Bold"> [place] hs Serum or Plasma Calcium Medical </content>9.7 Center MG/DL<content styleCode="Italic s"> (8.4-10.2 MG/DL)</content> Glucose 74-106 <content [facility] [Mass/volume] in styleCode="Bold"> [place] hs Serum or Plasma Glucose Medical </content>98 Center MG/DL<content styleCode="Italic s"> (74-106 MG/DL)</content> Alkaline 38-126 <content [facility] phosphatase styleCode="Bold"> [facility] [Enzymatic Alkaline Medical activity/volume] Phosphatase (ALP) Cente r in Serum or Plasma </content>62 IU/L<content styleCode="Italic s"> (38-126 IU/L)</content> Alanine 7-30 <content [facility] aminotransferase styleCode="Bold"> [facility] [Enzymatic Alanine Medical activity/volume] Aminotransferase Center in Serum or Plasma (ALT) </content>11 IU/L<content styleCode="Italic s"> (7-30 IU/L)</content> Aspartate 14-36 <content [facility] aminotransferase styleCode="Bold"> [facility] [Enzymatic Aspartate Medical activity/volume] Aminotransferase Center in Serum or Plasma (AST) </content>18 IU/L<content styleCode="Italic s"> (14-36 IU/L)</content> Albumin 3.5-5.0 <content [facility] [Mass/volume] in styleCode="Bold"> [place] [facility] Serum or Plasma Albumin Medical </content>4.0 Center G/DL<content styleCode="Italic s"> (3.5-5.0 G/DL)</content> Bilirubin.total 0.2-1.3 <content [facility] [Mass/volume] in styleCode="Bold"> [place] hs Serum or Plasma Bilirubin Total Medical </content>0.4 Center MG/DL<content styleCode="Italic s"> (0.2-1.3 MG/DL)</content> ID Date Data Source CHMROUTINECCDA.[id number] 11/15/2019 03:15:00 PM EDT [facility] -0400 Name Value Range Interpretation Code Description Data Delia rce(s) Supporting Document(s ) UNK 4.2-5.8 Above high normal <content [place] [facility] styleCode="Bold" Medical Cente r >Hemoglobin A1C </content>5.9 % H<content styleCode="Itali cs"> (4.2-5.8 %)</content> ID Date Data Source [id number] 11/14/2019 09:57:00 PM EDT [facility] Name Value Range Interpretation Description Data Sup porting Code Source(s) Document(s ) 2019 Novel [facility] Coronavirus RNA Interpretation Unspecified Specimen Qualitative WALT Probe Detection This lab was ordered by [facility] and reported by [facility]. ID Date Data Source Liver 08/07/2019 12:22:00 PM EST [facility] Profile.[id number] Name Value Range Interpretation Description Data Sup porting Code Source(s) Document(s ) Bilirubin.total 0.2-1.3 Below low <content [facility] [Mass/volume] in normal styleCode="Bold"> [place] [facility] Serum or Plasma Bilirubin Total Medical </content>< 0.2 Center MG/DL L<content styleCode="Italic s"> (0.2-1.3 MG/DL)</content> Alanine 7-30 <content [facility] aminotransferase styleCode="Bold"> [facility] [Enzymatic Alanine Medical activity/volume] Aminotransferase Center in Serum or Plasma (ALT) </content>16 IU/L<content styleCode="Italic s"> (7-30 IU/L)</content> Alkaline 38-126 <content [facility] phosphatase styleCode="Bold"> Yun [Enzymatic Alkaline Medical activity/volume] Phosphatase (ALP) Cente r in Serum or Plasma </content>60 IU/L<content styleCode="Italic s"> (38-126 IU/L)</content> Aspartate 14-36 <content [facility] aminotransferase styleCode="Bold"> [facility] [Enzymatic Aspartate Medical activity/volume] Aminotransferase Center in Serum or Plasma (AST) </content>21 IU/L<content styleCode="Italic s"> (14-36 IU/L)</content> Albumin 3.5-5.0 <content [facility] [Mass/volume] in styleCode="Bold"> [place] hs Serum or Plasma Albumin Medical </content>3.9 Center G/DL<content styleCode="Italic s"> (3.5-5.0 G/DL)</content> ID Date Data Source HematologyRou.[id number] 08/07/2019 12:22:00 PM EST [facility] 0500 Name Value Range Interpretation Description Data Sup porting Code Source(s) Document(s ) Leukocytes 4.4-11.0 <content [facility] [#/volume] in styleCode="Bold Yun Blood by ">White Blood Medical Automated count Cell Count Center </content>5.62 KCUMM<content styleCode="Ital ics"> (4.4-11.0 KCUMM)</content > Erythrocytes 4.0-5.1 <content [facility] [#/volume] in styleCode="Bold Yun Blood by ">Red Blood Medical Automated count Cell Count Center </content>4.40 MCUMM<content styleCode="Ital ics"> (4.0-5.1 MCUMM)</content > Hematocrit 36.0-46. <content [facility] [Volume 0 styleCode="Bold [facility] Fraction] of ">Hematocrit Medical Blood by </content>38.2 Center Automated count %<content styleCode="Ital ics"> (36.0-46.0 %)</content> Hemoglobin 12.3-16. <content [facility] [Mass/volume] in 0 styleCode="Bold Yun Blood ">Hemoglobin Medical </content>12.8 Center G/DL<content styleCode="Ital ics"> (12.3-16.0 G/DL)</content> Erythrocyte mean 32.0-37. <content [facility] corpuscular 0 styleCode="Bold Yun hemoglobin ">Mean Corpus. Medical concentration Hgb Center [Mass/volume] by Concentration Automated count (MCHC) </content>33.5 G/DL<content styleCode="Ital ics"> (32.0-37.0 G/DL)</content> Erythrocyte mean 80.0-100 <content [facility] corpuscular .0 styleCode="Bold Yun volume [Entitic ">Mean Medical volume] by Corpuscular Center Automated count Volume </content>86.8 FL<content styleCode="Ital ics"> (80.0-100.0 FL)</content> Erythrocyte mean 26.0-34. <content [facility] corpuscular 0 styleCode="Bold Yun hemoglobin ">Mean Medical [Entitic mass] Corposcular Center by Automated Hemoglobin count </content>29.1 PG<content styleCode="Ital ics"> (26.0-34.0 PG)</content> Erythrocyte 11.5-14. <content [facility] distribution 5 styleCode="Bold Yun width [Ratio] by ">Red Cell Medical Automated count Distribution Center Width </content>13.5 %<content styleCode="Ital ics"> (11.5-14.5 %)</content> Platelets 130-400 <content [facility] [#/volume] in styleCode="Bold Yun Blood by ">Platelet Medical Automated count Count Center </content>279 KCUMM<content styleCode="Ital ics"> (130-400 KCUMM)</content > UNK 0 <content [facility] styleCode="Bold Yun ">Nucleated Red Medical Blood Cell Center </content>0.0 /100<content styleCode="Ital ics"> (0 /100)</content> Platelet mean 8.0-11.0 <content [facility] volume [Entitic styleCode="Bold Yun volume] in Blood ">Mean Platelet Medical by Automated Volume Center count </content>10.3 FL<content styleCode="Ital ics"> (8.0-11.0 FL)</content> UNK 0.0 <content [facility] styleCode="Bold Yun ">Nucleated Red Medical Blood Cell Center Count </content>0.00 KCUMM<content styleCode="Ital ics"> (0.0 KCUMM)</content > ID Date Data Source GFR(Creatinine).[id number] 08/07/2019 12:22:00 PM EST [facility] 0-0500 Name Value Range Interpretation Code Description Data Delia rce(s) Supporting Document(s ) UNK > 60 <content [facility] styleCode="Bold"> Medical Cent er EGFR </content>104 GFR<content styleCode="Italic s"> (> 60 GFR)</content> ID Date Data Source Coagulation 08/07/2019 12:22:00 PM [facility] ical Center Rout.[id number] EST Name Value Range Interpretation Description Data Sup porting Code Source(s) Document(s ) UNK 9.0-13.0 <content [facility] styleCode="Bold" Yun >Protime Medical </content>11.7 Center SEC<content styleCode="Itali cs"> (9.0-13.0 SEC)</content> INR in 0.80-1.2 <content [facility] Platelet poor 0 styleCode="Bold" [facility] plasma by >INR Medical Coagulation </content>1.05 Center assay #<content styleCode="Itali cs"> (0.80-1.20 #)</content> aPTT in 25.1-36. <content [facility] Platelet poor 5 styleCode="Bold" [facility] plasma by >Partial Medical Coagulation Thromboplastin Center assay Time </content>30.8 SEC<content styleCode="Itali cs"> (25.1-36.5 SEC)</content> ID Date Data Source CHMROUTINECCDA.[id number] 08/07/2019 12:22:00 PM EST [facility] -0500 Name Value Range Interpretation Description Data Sup porting Code Source(s) Document(s ) UNK >= 1.0 <content [facility] styleCode="Bold Medical ">AG Ratio Center </content>1.3 <content styleCode="Ital ics"> (>= 1.0 )</content> Protein 6.3-8.2 <content [facility] [Mass/volum styleCode="Bold Medical e] in Serum ">Total Protein Center or Plasma </content>6.9 G/DL<content styleCode="Ital ics"> (6.3-8.2 G/DL)</content> UNK 2.3-3.5 <content [facility] Yun styleCode="Bold Medical ">Globulin Center </content>3.0 G/DL<content styleCode="Ital ics"> (2.3-3.5 G/DL)</content> ID Date Data Source [facility].[id number] 08/07/2019 12:22:00 PM EST [facility] Center Name Value Range Interpretation Description Data Sup porting Code Source(s) Document(s ) Sodium 137-145 <content [facility] [Moles/volume] in styleCode="Bold"> Deniz phs Serum or Plasma Sodium Medical </content>140 Center MEQ/L<content styleCode="Italic s"> (137-145 MEQ/L)</content> Chloride 98-107 <content [facility] [Moles/volume] in styleCode="Bold"> Deniz phs Serum or Plasma Chloride Medical </content>106 Center MEQ/L<content styleCode="Italic s"> (98-107 MEQ/L)</content> Potassium 3.5-5.3 <content [facility] [Moles/volume] in styleCode="Bold"> Deniz phs Serum or Plasma Potassium Medical </content>4.2 Center MEQ/L<content styleCode="Italic s"> (3.5-5.3 MEQ/L)</content> Carbon dioxide, 22-30 <content [facility] total styleCode="Bold"> Yun [Moles/volume] in Carbon Dioxide Medical Serum or Plasma </content>26 Center MEQ/L<content styleCode="Italic s"> (22-30 MEQ/L)</content> UNK 7-17 <content [facility] styleCode="Bold"> Yun BUN </content>11 Medical MG/DL<content Center styleCode="Italic s"> (7-17 MG/DL)</content> Creatinine 0.5-1.3 <content [facility] [Mass/volume] in styleCode="Bold"> [place] hs Serum or Plasma Creatinine Medical </content>0.7 Center MG/DL<content styleCode="Italic s"> (0.5-1.3 MG/DL)</content> Calcium 8.4-10. <content [facility] [Mass/volume] in 2 styleCode="Bold"> [place] [facility] Serum or Plasma Calcium Medical </content>9.4 Center MG/DL<content styleCode="Italic s"> (8.4-10.2 MG/DL)</content> Aspartate 14-36 <content [facility] aminotransferase styleCode="Bold"> [place] [facility] [Enzymatic Aspartate Medical activity/volume] Aminotransferase Center in Serum or Plasma (AST) </content>21 IU/L<content styleCode="Italic s"> (14-36 IU/L)</content> UNK > 60 <content [facility] styleCode="Bold"> Yun EGFR Medical </content>104 Center GFR<content styleCode="Italic s"> (> 60 GFR)</content> Glucose 74-106 <content [facility] [Mass/volume] in styleCode="Bold"> [place] hs Serum or Plasma Glucose Medical </content>77 Center MG/DL<content styleCode="Italic s"> (74-106 MG/DL)</content> Alkaline 38-126 <content [facility] phosphatase styleCode="Bold"> Yun [Enzymatic Alkaline Medical activity/volume] Phosphatase (ALP) Cente r in Serum or Plasma </content>60 IU/L<content styleCode="Italic s"> (38-126 IU/L)</content> Alanine 7-30 <content [facility] aminotransferase styleCode="Bold"> [place] [facility] [Enzymatic Alanine Medical activity/volume] Aminotransferase Center in Serum or Plasma (ALT) </content>16 IU/L<content styleCode="Italic s"> (7-30 IU/L)</content> Bilirubin.total 0.2-1.3 Below low <content [facility] [Mass/volume] in normal styleCode="Bold"> [place] hs Serum or Plasma Bilirubin Total Medical </content>< 0.2 Center MG/DL L<content styleCode="Italic s"> (0.2-1.3 MG/DL)</content> Albumin 3.5-5.0 <content [facility] [Mass/volume] in styleCode="Bold"> [facility] Serum or Plasma Albumin Medical </content>3.9 Center G/DL<content styleCode="Italic s"> (3.5-5.0 G/DL)</content> ID Date Data Source [id number] 08/07/2019 12:22:00 PM EST [facility] ([facility] [id number] [place]) Name Value Range Interpretation Code Description Data Delia rce(s) Supporting Document(s ) 5.62 KCUMM 4.4-11.0 WBC ON LICENSE OF [facility] ([facility]) 12.8 G/DL 12.3-16.0 HGB ON LICENSE OF [facility] ([facility]) 4.40 MCUMM 4.0-5.1 RBC ON LICENSE OF [facility] ([facility]) 86.8 FL 80.0-100.0 MCV [facility]) 38.2 % 36.0-46.0 HCT ON LICENSE OF [facility] ([facility]) 29.1 PG 26.0-34.0 MCH ON LICENSE OF [facility] ([facility]) 279 KCUMM 130-400 PLT ON LICENSE OF [facility] ([facility]) 33.5 G/DL 32.0-37.0 MCHC [facility]) 13.5 % 11.5-14.5 RDW ON LICENSE OF [facility] ([facility]) 0.00 KCUMM 0.0 NRBC ABS# ON LICENSE OF [facility] ([facility]) 0.0 /100 0 NRBC% ON LICENSE OF [facility] ([facility]) New parameters included in the report o f automated CBCNRBC(%/#) Is a direct count of Nucleated Red Blood cell, and will b ereported with every CBC count. WBC will automatically be corrected withthe prese nce of NRBC.

10.3 FL 8.0-11.0 MPV ON LICENSE OF [facility] ([facility]) ID Date Data Source [id number] 08/07/2019 12:22:00 PM EST [facility] ([facility] [id number] [place]) Name Value Range Interpretation Code Description Data Delia rce(s) Supporting Document(s ) 11.7 SEC 9.0-13.0 PT ON LICENSE OF [facility] ([facility]) 1.05 # 0.80-1.20 INR ON LICENSE OF [facility] ([facility]) [employer] REC OMMENDS USE OF THE INR FORMONITORING ORAL ANTICOAGULANT THERAPY. INR OF 2.0 - 3.0 IS RECOMMENDEDFOR ALL CONDITIONS WITH THE EXEPTION OF PATIENTS ANTICOAGULATED FOR THROMBOTIC COMPLICATIONS OF MECHANICAL HEART VALVE FOR WHICH AN INR OF2.5 - 3.5 IS RE COMMENDED.

ID Date Data Source [id number] 08/07/2019 12:22:00 PM EST [facility] ([facility] [id number] [place]) Name Value Range Interpretation Code Description Data Delia rce(s) Supporting Document(s ) 30.8 SEC 25.1-36.5 PTT ON LICENSE OF [facility] ([facility]) Heparin therapeutic range is 55 sec to 87 secReccommended therapeutic range for Argatroban is 1.5 to 3 times base lineAP TT,and for Refludan is 1.5 TO 2.5 times baseline APTT.

ID Date Data Source [id number] 08/07/2019 12:22:00 PM EST [facility] ([facility] [id number] [place]) Name Value Range Interpretation Code Description Data Supporting Source(s) Document(s ) 4.2 MEQ/L 3.5-5.3 POTASSIUM ON LICENSE OF [facility] ([facility]) 140 MEQ/L 137-145 SODIUM ON LICENSE OF [facility] ([facility]) 106 MEQ/L 98-107 CHLORIDE ON LICENSE OF [facility] ([facility]) 26 MEQ/L 22-30 CARBON DIOXIDE ON LICENSE OF [facility] ([facility]) 6.9 G/DL 6.3-8.2 TOTAL PROTEIN ON LICENSE OF [facility] ([facility]) 1.3 >= 1.0 AG RATIO ON LICENSE OF [facility] ([facility]) 3.0 G/DL 2.3-3.5 GLOBULIN ON LICENSE OF [facility] ([facility]) 3.9 G/DL 3.5-5.0 ALBUMIN [facility] ([facility]) 16 IU/L 7-30 ALT [facility] ([facility]) 21 IU/L 14-36 AST (GOT) ON LICENSE OF [facility] ([facility]) 60 IU/L 38-126 [facility] 104 GFR > 60 eGFR ON LICENSE OF [facility] ([facility]) Estimated GFR is calculated using the [place] dification of Diet in RenalDisease (MDRD) Study equation, and normalized to 1.73m2 body surfce area.The MDRD study equation should only be used in individuals age 1 8 orolder. It has not been validated for the following: women,patients with serious comorbid conditions, or on certain medications, orpersons with extremes of body size, muscle mass, or nutritional status.

11 MG/DL 7-17 BUN ON LICENSE OF [facility] ([facility]) 9.4 MG/DL 8.4-10.2 CALCIUM ON LICENSE OF [facility] ([facility]) 0.7 MG/DL 0.5-1.3 CREATININE ON LICENSE OF [facility] ([facility]) < 0.2 0.2-1.3 Below low normal BILI, TOTAL ON LICENSE OF [facility] ([facility]) 77 MG/DL 74-106 GLUCOSE ON LICENSE OF [facility] ([facility]) ID Date Data Source [id number] 08/07/2019 12:22:00 PM EST [facility] ([facility] [id number] [place]) Name Value Range Interpretation Description Data Sup porting Code Source(s) Document(s ) 140 MEQ/L 137-145 SODIUM ON LICENSE OF [facility] ([facility]) 106 MEQ/L 98-107 CHLORIDE ON LICENSE OF [facility] ([facility]) 26 MEQ/L 22-30 CARBON DIOXIDE ON LICENSE OF [facility] ([facility]) 6.9 G/DL 6.3-8.2 TOTAL PROTEIN ON LICENSE OF [facility] ([facility]) 16 IU/L 7-30 ALT ON LICENSE OF [facility] ([facility]) 21 IU/L 14-36 AST (GOT) ON LICENSE OF [facility] ([facility]) 3.9 G/DL 3.5-5.0 ALBUMIN ON LICENSE OF [facility] ([facility]) 11 MG/DL 7-17 [facility] 60 IU/L 38-126 ALP [facility] ([facility]) 9.4 MG/DL 8.4-10.2 CALCIUM [facility] 77 MG/DL 74-106 GLUCOSE ON LICENSE OF [facility] ([facility]) 0.7 MG/DL 0.5-1.3 CREATININE ON LICENSE OF [facility] ([facility]) ID Date Data Source GFR(Creatinine).[id number] 05/18/2019 01:26:00 PM EST [facility] 0-0500 Name Value Range Interpretation Code Description Data Delia rce(s) Supporting Document(s ) UNK > 60 <content [facility] styleCode="Bold"> Medical Cent er EGFR </content>126 GFR<content styleCode="Italic s"> (> 60 GFR)</content> ID Date Data Source [id number] 05/18/2019 01:26:00 PM EST [facility] Name Value Range Interpretation Description Data Sup porting Code Source(s) Document(s ) Sodium 137-145 <content [facility] [Moles/volume] styleCode="Marianegl Yun in Serum or d">Sodium Medical Plasma </content>143 Center MEQ/L<content styleCode="Nicole lics"> (137-145 MEQ/L)</conten t> Chloride 98-107 Above high normal <content [facility] [Moles/volume] styleCode="Mariangel Yun in Serum or d">Chloride Medical Plasma </content>110 Center MEQ/L H<content styleCode="Nicole lics"> (98-107 MEQ/L)</conten t> Potassium <content [facility] [Moles/volume] styleCode="Mariangel Yun in Serum or d">Potassium Medical Plasma </content>Test Center not performed. MEQ/L (Reference Range: not available)<br/ > Carbon 22-30 <content [facility] dioxide, total styleCode="Mariangel Yun [Moles/volume] d">[facility] in Serum or Dioxide Center Plasma </content>26 MEQ/L<content styleCode="Nicole lics"> (22-30 MEQ/L)</conten t> Glucose 74-106 <content Saint [Mass/volume] styleCode="Mariangel Yun in Serum or d">Glucose Medical Plasma </content>89 Center MG/DL<content styleCode="Nicole lics"> (74-106 MG/DL)</conten t> Creatinine 0.5-1.3 <content Saint [Mass/volume] styleCode="Mariangel Yun in Serum or d">Creatinine Medical Plasma </content>0.7 Center MG/DL<content styleCode="Nicole lics"> (0.5-1.3 MG/DL)</conten t> Calcium 8.4-10.2 <content Saint [Mass/volume] styleCode="Mariangel Yun in Serum or d">Calcium Medical Plasma </content>9.8 Center MG/DL<content styleCode="Nicole lics"> (8.4-10.2 MG/DL)</conten t> UNK 7-17 <content Saint styleCode="Mariangel Yun d">BUN Medical </content>10 Center MG/DL<content styleCode="Nicole lics"> (7-17 MG/DL)</conten t> UNK > 60 <content Saint styleCode="Mariangel Lozanos d">EGFR Medical </content>126 Center GFR<content styleCode="Nicole lics"> (> 60 GFR)</content> ID Date Data Source Urinalysis.[id number] 05/18/2019 12:32:00 PM EST [facility] 0 Name Value Range Interpretation Description Data Sup porting Code Source(s) Document(s ) UNK CLEAR <content Saint styleCode="Mariangel Yun d">Urine Medical Clarity Center </content>CLOU DY <content styleCode="Nicole lics"> (CLEAR )</content> Color of Urine YELLOW <content Saint styleCode="Mariangel Yun d">Color, Medical Urine Center </content>YELL OW <content styleCode="Nicole lics"> (YELLOW )</content> Ketones NEGATIVE <content Saint [Mass/volume] styleCode="Mariangel Lozanos in Urine by d">Urine Medical Test strip Ketone Center </content>NEGA TIVE MG/DL<content styleCode="Nicole lics"> (NEGATIVE MG/DL)</conten t> Glucose NEGATIVE <content Saint [Mass/volume] styleCode="Mariangel Yun in Urine by d">Urine Medical Test strip Glucose Center </content>NEGA TIVE MG/DL<content styleCode="Nicole lics"> (NEGATIVE MG/DL)</conten t> UNK NEGATIVE <content Saint styleCode="Mariangel Yun d">Urine Medical Bilirubin Center </content>NEGA TIVE <content styleCode="Nicole lics"> (NEGATIVE )</content> Protein NEGATIVE <content Saint [Mass/volume] styleCode="Mariangel Lozanos in Urine by d">Urine Medical Test strip Protein Center </content>NEGA TIVE MG/DL<content styleCode="Nicole lics"> (NEGATIVE MG/DL)</conten t> Specific 1.015-1.02 Above high <content Saint gravity of 5 normal styleCode="Mariangel Lozanos Urine by Test d">Urine Medical strip Specific Center Labelle </content>>= 1.030 H<content styleCode="Nicole lics"> (1.015-1.025 )</content> Hemoglobin NEGATIVE <content Saint [Presence] in styleCode="Mariangel Malcolm Urine by Test d">Urine Blood Medical strip </content>TRAC Center E <content styleCode="Nicole lics"> (NEGATIVE )</content> pH of Urine by 4.5-8.0 <content Saint Test strip styleCode="Mariangel Yun d">Urine pH Medical </content>5.5 Center <content styleCode="Nicole lics"> (4.5-8.0 )</content> Urobilinogen 0.2-1.0 <content Saint [Units/volume] styleCode="Mariangel Yun in Urine by d">Urine Medical Test strip Urobilinogen Center </content>0.2 MG/DL<content styleCode="Nicole lics"> (0.2-1.0 MG/DL)</conten t> Nitrite NEGATIVE <content [Presence] in styleCode="Mariangel Malcolm Urine by Test d">Urine Medical strip Nitrite Center </content>NEGA TIVE <content styleCode="Nicole lics"> (NEGATIVE )</content> Leukocyte NEGATIVE <content Saint esterase styleCode="Mariangel Malcolm [Presence] in d">Urine Medical Urine by Test Leukocyte Center strip </content>SMAL L <content styleCode="Nicole lics"> (NEGATIVE )</content> UNK NEGATIVE <content Saint styleCode="Mariangel Lozanos d">Urine Medical Bacteria Center </content>FEW HPF<content styleCode="Nicole lics"> (NEGATIVE HPF)</content> UNK 0-3 <content Saint styleCode="Mariangel Lozanos d">Urine Red Medical Blood Cell Center </content>0-3 HPF<content styleCode="Nicole lics"> (0-3 HPF)</content> UNK NONE <content Saint styleCode="Mariangel Lozanos d">Amorphous Medical Crystal Center </content>FEW HPF<content styleCode="Nicole lics"> (NONE HPF)</content> UNK 0-3 <content Saint styleCode="Mariangel Lozanos d">Urine White Medical Blood Cell Center </content>5 - 10 HPF<content styleCode="Nicole lics"> (0-3 HPF)</content> UNK NONE SEEN <content Saint styleCode="Mariangel Lozanos d">Epithelial Medical Cell Center </content>20-2 5 HPF<content styleCode="Nicole lics"> (NONE SEEN HPF)</content> ID Date Data Source Microbiology.[id number] 05/18/2019 12:32:00 PM EST Camilo nt [facility] 500 Name Value Range Interpretation Code Description Data Delia rce(s) Supporting Document(s ) UNK <item><content Saint Malcolm styleCode="Bold">Cu Medical Ce nter lture Status </content>
<tab le><tbody><tr><td>S pecimen Number:</td><td>[id number]</td></tr><tr ><td>Sample Collection Date/Time: </td><td>05/18/2019 12:32 PM</td></tr><tr><td >Specimen Source:</td><td>URI NE</td></tr><tr><td >Culture Status:</td><td>Fin al </td></tr><tr><td>C ulture Report:</td><td>Cul ture in progress </td></tr><tr><td>U rine Culture:</td><td>Co llection Plate Date: 05/18/2019 12:38 </td></tr><tr><td>O rganism 1:</td><td>DIPHTHER OIDS </td></tr><tr><td>O rganism 2:</td><td>COAGULAS E NEGATIVE STAPHYLOCOCCUS </td></tr><tr><td>O rganism 3:</td><td>DIPHTHER OIDS </td></tr><tr><td>O rganism 4:</td><td>STREPTOC OCCUS VIRIDANS </td></tr></tbody>< /table>
<table border="2"><tbody>< tr><td></td><td>1</ td><td>2</td><td>3< /td><td>4</td></tr> <tr><td>Comment</td ><td></td><td></td> <td></td><td></td>< /tr><tr><td>Result Value</td><td>DIPHT HEROIDS </td><td>COAGULASE NEGATIVE STAPHYLOCOCCUS </td><td>DIPHTHEROI DS </td><td>STREPTOCOC CUS VIRIDANS </td></tr><tr><td>R esult Status</td><td>Ny l Result</td><td>Ny l Result</td><td>Ny l Result</td><td>Ny l Result</td></tr><tr ><td></td><td></td> <td></td><td></td>< td></td></tr></tbod y></table></item> UNK <item><content Saint Yun styleCode="Bold"> Medical Ce nter lture Report </content>
<tab le><tbody><tr><td>S pecimen Number:</td><td>[id number]</td></tr><tr ><td>Sample Collection Date/Time: </td><td>05/18/2019 12:32 PM</td></tr><tr><td >Specimen Source:</td><td>URI NE</td></tr><tr><td >Urine Culture:</td><td>Co llection Plate Date: 05/18/2019 12:38 </td></tr><tr><td>C ulture Status:</td><td>Fin al </td></tr><tr><td>C ulture Report:</td><td>Cul ture in progress </td></tr><tr><td>O rganism 1:</td><td>DIPHTHER OIDS </td></tr><tr><td>O rganism 2:</td><td>COAGULAS E NEGATIVE STAPHYLOCOCCUS </td></tr><tr><td>O rganism 3:</td><td>DIPHTHER OIDS </td></tr><tr><td>O rganism 4:</td><td>STREPTOC OCCUS VIRIDANS </td></tr></tbody>< /table>
<table border="2"><tbody>< tr><td></td><td>1</ td><td>2</td><td>3< /td><td>4</td></tr> <tr><td>Comment</td ><td></td><td></td> <td></td><td></td>< /tr><tr><td>Result Value</td><td>DIPHT HEROIDS </td><td>COAGULASE NEGATIVE STAPHYLOCOCCUS </td><td>DIPHTHEROI DS </td><td>STREPTOCOC CUS VIRIDANS </td></tr><tr><td>R esult Status</td><td>Ny l Result</td><td>Ny l Result</td><td>Ny l Result</td><td>Ny l Result</td></tr><tr ><td></td><td></td> <td></td><td></td>< td></td></tr></tbod y></table></item> ID Date Data Source Liver 05/18/2019 12:32:00 PM EST [facility] Profile.[id number] Name Value Range Interpretation Description Data Sup porting Code Source(s) Document(s ) Alanine <content Saint aminotransferase styleCode="Bold"> [facility] [Enzymatic Alanine Medical activity/volume] Aminotransferase Center in Serum or Plasma (ALT) </content>Test not performed. IU/L (Reference Range: not available)
Aspartate <content Saint aminotransferase styleCode="Bold"> [facility] [Enzymatic Aspartate Medical activity/volume] Aminotransferase Center in Serum or Plasma (AST) </content>Test not performed. IU/L (Reference Range: not available)
Alkaline <content Saint phosphatase styleCode="Bold"> [facility] [Enzymatic Alkaline Medical activity/volume] Phosphatase (ALP) Cente r in Serum or Plasma </content>Test not performed. IU/L (Reference Range: not available)
UNK <content Saint styleCode="Bold"> Yun Bilirubin, Direct Medical </content>Test Center not performed. MG/DL (Reference Range: not available)
Bilirubin.total <content Saint [Mass/volume] in styleCode="Bold"> [facility] hs Serum or Plasma Bilirubin Total Medical </content>Test Center not performed. MG/DL (Reference Range: not available)
Albumin <content Saint [Mass/volume] in styleCode="Bold"> [facility] hs Serum or Plasma Albumin Medical </content>Test Center not performed. G/DL (Reference Range: not available)
ID Date Data Source HematologyRou.[id number] 05/18/2019 12:32:00 PM OLIVIA Page [facility] 0500 Name Value Range Interpretation Description Data Sup porting Code Source(s) Document(s ) Hemoglobin 12.3-16. <content Saint [Mass/volume] in 0 styleCode="Bold Yun Blood ">Hemoglobin Medical </content>12.8 Center G/DL<content styleCode="Ital ics"> (12.3-16.0 G/DL)</content> Erythrocytes 4.0-5.1 <content Saint [#/volume] in styleCode="Bold Yun Blood by ">Red Blood Medical Automated count Cell Count Center </content>4.48 MCUMM<content styleCode="Ital ics"> (4.0-5.1 MCUMM)</content > Leukocytes 4.4-11.0 <content Saint [#/volume] in styleCode="Bold Yun Blood by ">White Blood Medical Automated count Cell Count Center </content>6.65 KCUMM<content styleCode="Ital ics"> (4.4-11.0 KCUMM)</content > Erythrocyte mean 32.0-37. <content Saint corpuscular 0 styleCode="Bold Yun hemoglobin ">Mean Corpus. Medical concentration Hgb Center [Mass/volume] by Concentration Automated count (MCHC) </content>32.8 G/DL<content styleCode="Ital ics"> (32.0-37.0 G/DL)</content> Erythrocyte mean 26.0-34. <content Saint corpuscular 0 styleCode="Bold Yun hemoglobin ">Mean Medical [Entitic mass] Corposcular Center by Automated Hemoglobin count </content>28.6 PG<content styleCode="Ital ics"> (26.0-34.0 PG)</content> Erythrocyte mean 80.0-100 <content Saint corpuscular .0 styleCode="Bold Yun volume [Entitic ">Mean Medical volume] by Corpuscular Center Automated count Volume </content>87.1 FL<content styleCode="Ital ics"> (80.0-100.0 FL)</content> Hematocrit 36.0-46. <content Saint [Volume 0 styleCode="Bold Yun Fraction] of ">Hematocrit Medical Blood by </content>39.0 Center Automated count %<content styleCode="Ital ics"> (36.0-46.0 %)</content> Erythrocyte 11.5-14. <content Saint distribution 5 styleCode="Bold Yun width [Ratio] by ">Red Cell Medical Automated count Distribution Center Width </content>13.5 %<content styleCode="Ital ics"> (11.5-14.5 %)</content> UNK 0 <content Saint styleCode="Bold Yun ">Nucleated Red Medical Blood Cell Center </content>0.0 /100<content styleCode="Ital ics"> (0 /100)</content> Platelets 130-400 <content Saint [#/volume] in styleCode="Bold Yun Blood by ">Platelet Medical Automated count Count Center </content>186 KCUMM<content styleCode="Ital ics"> (130-400 KCUMM)</content > Platelet mean 8.0-11.0 <content Saint volume [Entitic styleCode="Bold Yun volume] in Blood ">Mean Platelet Medical by Automated Volume Center count </content>10.9 FL<content styleCode="Ital ics"> (8.0-11.0 FL)</content> UNK 0.0 <content Saint styleCode="Bold Yun ">Nucleated Red Medical Blood Cell Center Count </content>0.00 KCUMM<content styleCode="Ital ics"> (0.0 KCUMM)</content > ID Date Data Source GFR(Creatinine).[id number] 05/18/2019 12:32:00 PM [facility] 0-0500 Name Value Range Interpretation Code Description Data Delia rce(s) Supporting Document(s ) UNK <content Saint Yun styleCode="Bold"> Medical Cent er EGFR </content>Test not performed. GFR (Reference Range: not available)
ID Date Data Source CHMROUTINECCDA.[id number] 05/18/2019 12:32:00 PM [facility] -0500 Name Value Range Interpretation Code Description Data Supporting Source(s) Document(s ) Lipase <content [facility] [Enzymatic styleCode="Bold Medical activity/vo ">Lipase Center lume] in </content>Test Serum or not performed. Plasma IU/L (Reference Range: not available)
ID Date Data Source [facility].[id number] 05/18/2019 12:32:00 PM [facility] Center Name Value Range Interpretation Description Data Sup porting Code Source(s) Document(s ) Sodium <content Saint [Moles/volume] in styleCode="Bold"> Deniz phs Serum or Plasma Sodium Medical </content>Test Center not performed. MEQ/L (Reference Range: not available)
Carbon dioxide, <content Saint total styleCode="Bold"> Yun [Moles/volume] in Carbon Dioxide Medical Serum or Plasma </content>Test Center not performed. MEQ/L (Reference Range: not available)
Chloride <content Saint [Moles/volume] in styleCode="Bold"> Deniz phs Serum or Plasma Chloride Medical </content>Test Center not performed. MEQ/L (Reference Range: not available)
UNK <content Saint styleCode="Bold"> Yun BUN Medical </content>Test Center not performed. MG/DL (Reference Range: not available)
Potassium <content Saint [Moles/volume] in styleCode="Bold"> Deniz phs Serum or Plasma Potassium Medical </content>Test Center not performed. MEQ/L (Reference Range: not available)
Aspartate <content Saint aminotransferase styleCode="Bold"> [facility] [Enzymatic Aspartate Medical activity/volume] Aminotransferase Center in Serum or Plasma (AST) </content>Test not performed. IU/L (Reference Range: not available)
Calcium <content Saint [Mass/volume] in styleCode="Bold"> [facility] hs Serum or Plasma Calcium Medical </content>Test Center not performed. MG/DL (Reference Range: not available)
UNK <content Saint styleCode="Bold"> Yun EGFR Medical </content>Test Center not performed. GFR (Reference Range: not available)
Creatinine <content Saint [Mass/volume] in styleCode="Bold"> [facility] hs Serum or Plasma Creatinine Medical </content>Test Center not performed. MG/DL (Reference Range: not available)
Glucose <content Saint [Mass/volume] in styleCode="Bold"> [facility] hs Serum or Plasma Glucose Medical </content>Test Center not performed. MG/DL (Reference Range: not available)
Albumin <content Saint [Mass/volume] in styleCode="Bold"> [facility] hs Serum or Plasma Albumin Medical </content>Test Center not performed. G/DL (Reference Range: not available)
Bilirubin.total <content Saint [Mass/volume] in styleCode="Bold"> [facility] hs Serum or Plasma Bilirubin Total Medical </content>Test Center not performed. MG/DL (Reference Range: not available)
Alkaline <content Saint phosphatase styleCode="Bold"> [facility] [Enzymatic Alkaline Medical activity/volume] Phosphatase (ALP) Cente r in Serum or Plasma </content>Test not performed. IU/L (Reference Range: not available)
Alanine <content Saint aminotransferase styleCode="Bold"> [facility] [Enzymatic Alanine Medical activity/volume] Aminotransferase Center in Serum or Plasma (ALT) </content>Test not performed. IU/L (Reference Range: not available)
ID Date Data Source [id number] 02/21/2019 10:01:45 AM EDT NEXTG EN ([facility] [id number] Center) Name Value Range Interpretation Description Data Sup porting Code Source(s) Document(s ) Choriogonadotropin NEGATIVE Urine NEXTGEN ( test) (Saint [Presence] in Urine Test [facility]) Procedure Social History Code Duration Value Status Description Data Source(s ) Smoking 04/03/2020 Denies Ever completed Denies Ever [facility] Lozano s 05:45:00 PM Smoked Smoked Medical Cente r EDT Smoking 04/03/2020 Denies Ever completed Denies Ever [facility] L[facility]ano s 05:02:00 PM Smoked Smoked Medical Cente r EDT Caffeine Use 03/13/2020 completed NEXTGEN ([facility] nt Details 12:00:00 AM [facility]) Smoking 03/13/2020 Unknown if ever completed Unknown if ever NEXT GEN ([facility] 12:00:00 AM smoked smoked [facility]) Caffeine Use 01/24/2020 completed soda NEXTGEN ([facility] nt Details 12:00:00 AM [facility]) Smoking 01/22/2020 Denies Ever completed Denies Ever [facility] Lozano s 08:40:00 PM Smoked Smoked Medical Cente r EDT Smoking 01/22/2020 Denies Ever completed Denies Ever [facility]ano s 08:03:00 PM Smoked Smoked Medical Cente r EDT Smoking 05/18/2019 Denies Ever completed Denies Ever [facility] s 01:14:00 PM Smoked Smoked Medical Cente r EST Smoking 05/18/2019 Denies Ever completed Denies Ever [facility] 12:09:00 PM Smoked Smoked Medical Cente r EST Smoking 05/18/2019 Denies Ever completed Denies Ever [facility] 11:48:00 AM Smoked Smoked Medical Cente r EST 03/29/2019 Occasional completed Occasional NEXTGEN ([facility] 12:00:00 AM cigarette smoker cigarette smoker [facility]) Vital Signs ID Date Data Source UNK Name Value Range Interpretation Code Description Data Source(s) Body temperature 36.913511 36.236725 Jonna [facility] Respiratory rate 16 /min 16 /min [facility] Oxygen saturation 98 % 98 % [facility] in Arterial blood [facility] by Pulse oximetry Heart rate 75 /min 75 /min [facility] Diastolic blood 71 mm[Hg] 71 mm[Hg] [facility] pressure [facility] Systolic blood 124 mm[Hg] 124 mm[Hg] [facility] pressure [facility] Body weight 120.894505 120.710768 kg [facility] Measured kg Medical Center Body temperature 37.545219 37.917830 Jonna [facility] Center Respiratory rate 18 /min 18 /min [facility] Oxygen saturation 99 % 99 % [facility] Srini wylie in [facility] by Pulse oximetry Heart rate 83 /min 83 /min [facility] Body height 160.356320 160.667411 cm [facility] Diastolic blood 77 mm[Hg] 77 mm[Hg] [facility] pressure Medical Center Systolic blood 121 mm[Hg] 121 mm[Hg] [facility] pressure Medical Center Body mass index 46.8 kg/m2 46.8 kg/m2 [facility] (BMI) [Ratio] Medical [facility] ter Oxygen saturation 97 % 97 % NEXTGEN ([facility] in Arterial blood [facility] by Pulse oximetry Center) Body mass index 44.76 kg/m2 Overweight 44.76 kg/m2 NEXTGEN ([facility] (BMI) [Ratio] [facility]) Respiratory rate 18 /min 18 /min ON LICENSE OF [facility] ([facility]) Body temperature 36.89 Jonna 36.89 Jonna ON LICENSE OF [facility] ([facility]) Heart rate 75 /min 75 /min ON LICENSE OF [facility] ([facility]) Diastolic blood 80 mm[Hg] 80 mm[Hg] ON LICENSE OF [facility] ( [facility]) Systolic blood 115 mm[Hg] 115 mm[Hg] ON LICENSE OF [facility] ([facility]) Body weight 122.016 kg 122.016 [facility] Body height 165.10 cm 165.10 cm ON LICENSE OF [facility] ([facility]) Oxygen saturation 97 % 97 % [facility] in Arterial [facility] by Pulse oximetry Center) Body mass index 44.16 kg/m2 Overweight 44.16 kg/m2 [facility] (BMI) [Ratio] [facility]) Respiratory rate 20 /min 20 /min ON LICENSE OF [facility] ([facility]) Body temperature 36.33 Jonna 36.33 Jonna ON LICENSE OF [facility] ([facility]) Heart rate 67 /min 67 /min ON LICENSE OF [facility] ([facility]) Diastolic blood 80 mm[Hg] 80 mm[Hg] [facility]) Systolic blood 117 mm[Hg] 117 mm[Hg] [facility] (S aint pressure [facility]) Body weight 120.383 kg 120.383 kg ON LICENSE OF [facility] ([facility]) Body height 165.10 cm 165.10 cm ON LICENSE OF [facility] ([facility]) Body temperature 36.620642 36.111041 Jonna [facility] Respiratory rate 18 /min 18 /min [facility] Oxygen saturation 98 % 98 % [facility] J osephs in [facility] by Pulse oximetry Heart rate 76 /min 76 /min [facility] Diastolic blood 86 mm[Hg] 86 mm[Hg] [facility] Systolic blood 140 mm[Hg] 140 mm[Hg] [facility] Body weight 111.052950 111.160350 kg [facility] Measured kg [facility] Body temperature 36.115138 36.945644 Jonna [facility] Respiratory rate 20 /min 20 /min [facility] Oxygen saturation 97 % 97 % [facility] osephs in [facility] by Pulse oximetry Heart rate 80 /min 80 /min [facility] Body height 160.465380 160.127344 cm [facility] Diastolic blood 91 mm[Hg] 91 mm[Hg] [facility] Systolic blood 143 mm[Hg] 143 mm[Hg] [facility] Body mass index 43.3 kg/m2 43.3 kg/m2 [facility] (BMI) [Ratio] Medical [facility] ter Oxygen saturation 98 % 98 % ON LICENSE OF [facility] ([facility] in Arterial blood [facility] by Pulse oximetry Center) Body mass index 44.36 kg/m2 Overweight 44.36 kg/m2 ON LICENSE OF [facility] ([facility] (BMI) [Ratio] [facility]) Respiratory rate 18 /min 18 /min ON LICENSE OF [facility] ([facility]) Body temperature 36.44 Jonna 36.44 Jonna ON LICENSE OF [facility] ([facility]) Heart rate 78 /min 78 /min ON LICENSE OF [facility] ([facility]) Diastolic blood 82 mm[Hg] 82 mm[Hg] [facility] pressure [facility]) Systolic blood 124 mm[Hg] 124 mm[Hg] [facility] ([facility]) Body weight 120.928 kg 120.928 kg [facility]) Body height 165.10 cm 165.10 cm ON LICENSE OF [facility] ([facility]) Oxygen saturation 97 % 97 % NEXTGEN ([facility] in Arterial blood [facility] by Pulse oximetry Center) Body mass index 44.26 kg/m2 Overweight 44.26 kg/m2 NEXT[facility] ([facility] (BMI) [Ratio] [facility]) Respiratory rate 18 /min 18 /min [facility]EXT[facility] ([facility]) Body temperature 36.44 Jonna 36.44 Jonna [facility]) Heart rate 89 /min 89 /min [facility]) Diastolic blood 82 mm[Hg] 82 mm[Hg] [facility] ( [facility]) Systolic blood 129 mm[Hg] 129 mm[Hg] [facility]) Body weight 120.656 kg 120.656 kg [facility]) Body height 165.10 cm 165.10 cm ON LICENSE OF [facility] ([facility]) Oxygen saturation 99 % 99 % NEXTGEN ([facility] in Arterial [facility] by Pulse oximetry Center) Body mass index 44.10 kg/m2 Overweight 44.10 kg/m2 NEXTGEN ([facility] (BMI) [Ratio] [facility]) Respiratory rate 19 /min 19 /min [facility]) Body temperature 37.22 Jonna 37.22 Jonna [facility]) Heart rate 86 /min 86 /min [facility]) Diastolic blood 73 mm[Hg] 73 mm[Hg] [facility] ( [facility]) Systolic blood 110 mm[Hg] 110 mm[Hg] [facility]) Body weight 120.202 kg 120.202 kg [facility]) Body height 165.10 cm 165.10 cm ON LICENSE OF [facility] ([facility]) Oxygen saturation 98 % 98 % [facility] in Arterial [facility] by Pulse oximetry Center) Body mass index 45.10 kg/m2 Overweight 45.10 kg/m2 NEXTGEN ([facility] (BMI) [Ratio] [facility]) Respiratory rate 19 /min 19 /min [facility] ([facility]) Body temperature 36.33 Jonna 36.33 Jonna [facility] ([facility]) Heart rate 85 /min 85 /min [facility] ([facility]) Diastolic blood 80 mm[Hg] 80 mm[Hg] [facility] ( [facility]) Systolic blood 122 mm[Hg] 122 mm[Hg] [facility] ([facility]) Body weight 122.924 kg 122.924 [facility] Body height 165.10 cm 165.10 cm ON LICENSE OF [facility] ([facility]) Oxygen saturation 99 % 99 % [facility] ([facility] in Arterial blood [facility] by Pulse oximetry Center) Body mass index 44.33 kg/m2 Overweight 44.33 kg/m2 [facility] ([facility] (BMI) [Ratio] [facility]) Respiratory rate 19 /min 19 /min [facility] ([facility]) Body temperature 36.56 Jonna 36.56 Jonna [facility]) Heart rate 90 /min 90 /min [facility] ([facility]) Diastolic blood 73 mm[Hg] 73 mm[Hg] [facility] ( [facility]) Systolic blood 115 mm[Hg] 115 mm[Hg] [facility] (S nt [facility]) Body weight 120.837 kg 120.837 kg [facility]) Body height 165.10 cm 165.10 cm [facility]) Body mass index 43.77 kg/m2 Overweight 43.77 kg/m2 [facility] ([facility] (BMI) [Ratio] [facility]) Respiratory rate 20 /min 20 /min ON LICENSE OF [facility] ([facility]) Body temperature 37.00 Jonna 37.00 Jonna [facility]) Heart rate 93 /min 93 /min [facility]) Diastolic blood 73 mm[Hg] 73 mm[Hg] [facility] ( [facility]) Systolic blood 120 mm[Hg] 120 mm[Hg] [facility] (S nt pressure [facility]) Body weight 119.295 kg 119.295 [facility] Body height 165.10 cm 165.10 cm [facility]) Oxygen saturation 96 % 96 % [facility] ([facility] in Arterial blood [facility] by Pulse oxim[facility] Center) Body mass index 43.93 kg/m2 Overweight 43.93 kg/m2 [facility] ([facility] (BMI) [Ratio] [facility]) Respiratory rate 18 /min 18 /min [facility] ([facility]) Body temperature 36.17 Jonna 36.17 Jonna [facility]) Heart rate 90 /min 90 /min [facility] ([facility]) Diastolic blood 75 mm[Hg] 75 mm[Hg] [facility] ( [facility]) Systolic blood 132 mm[Hg] 132 mm[Hg] [facility] (S nt pressure [facility]) Body weight 119.748 kg 119.748 [facility] Body height 165.10 cm 165.10 cm [facility]) Oxygen saturation 97 % 97 % [facility] ([facility] in Arterial [facility] by Pulse oximetry Center) Heart rate 105 /min 105 /min [facility] ([facility]) Diastolic blood 81 mm[Hg] 81 mm[Hg] [facility] ( [facility]) Systolic blood 124 mm[Hg] 124 mm[Hg] [facility] ([facility] pressure [facility]) Body mass index 43.60 kg/m2 Overweight 43.60 kg/m2 [facility] ([facility] (BMI) [Ratio] [facility]) Respiratory rate 18 /min 18 /min [facility] ([facility]) Body temperature 37.00 Jonna 37.00 Jonna [facility]) Heart rate 114 /min 114 /min [facility] ([facility]) Diastolic blood 101 mm[Hg] 101 mm[Hg] [facility] ( [facility]) Systolic blood 152 mm[Hg] 152 mm[Hg] [facility] (S aint pressure [facility]) Body weight 118.841 kg 118.841 kg [facility] ([facility] t [facility]) Body height 165.10 cm 165.10 cm [facility] ([facility] t [facility]) Body temperature 36.970730 [id number] [facility] Respiratory rate 19 /min 19 /min [facility] Oxygen saturation 98 % 98 % [facility] Pulse oximetry Heart rate 70 /min 70 /min [facility] Diastolic blood 68 mm[Hg] 68 mm[Hg] [facility] Systolic blood 118 mm[Hg] 118 mm[Hg] [facility] Body temperature 36.175256 [id number] [facility] Respiratory rate 17 /min 17 /min [facility] Oxygen saturation 98 % 98 % [facility] by Pulse oximetry Heart rate 73 /min 73 /min [facility] Diastolic blood 66 mm[Hg] 66 mm[Hg] [facility] Systolic blood 112 mm[Hg] 112 mm[Hg] [facility] Body temperature 36.304779 [id number] [facility] Respiratory rate 17 /min 17 /min [facility] Oxygen saturation 99 % 99 % [facility] blood [facility] by Pulse oximetry Heart rate 79 /min 79 /min [facility] Diastolic blood 90 mm[Hg] 90 mm[Hg] [facility] Systolic blood 139 mm[Hg] 139 mm[Hg] [facility] Systolic blood 152 mm[Hg] 152 mm[Hg] [facility] Body temperature 36.570794 [id number] [facility] Respiratory rate 18 /min 18 /min [facility] Oxygen saturation 100 % 100 % [facility] blood [facility] by Pulse oximetry Heart rate 88 /min 88 /min [facility] Diastolic blood 97 mm[Hg] 97 mm[Hg] [facility] Oxygen saturation 97 % 97 % [facility] ([facility] in Arterial blood [facility] by Pulse oximetry Center) Body mass index 42.93 kg/m2 Overweight 42.93 kg/m2 [facility] ([facility] (BMI) [Ratio] [facility]) Respiratory rate 20 /min 20 /min [facility] ([facility]) Body temperature 36.67 Jonna 36.67 Jonna [facility] ([facility]) Heart rate 99 /min 99 /min [facility] ([facility]) Diastolic blood 71 mm[Hg] 71 mm[Hg] [facility] ( [facility]) Systolic blood 102 mm[Hg] 102 mm[Hg] [facility] (S [facility] pressure [facility]) Body weight 117.027 kg 117.027 kg [facility] ([facility]) Body height 165.10 cm 165.10 cm [facility]) Oxygen saturation 98 % 98 % [facility] ([facility] in Arterial [facility] by Pulse oximetry Center) Body mass index 43.50 kg/m2 Overweight 43.50 kg/m2 [facility] ([facility] (BMI) [Ratio] [facility]) Respiratory rate 20 /min 20 /min [facility] ([facility]) Body temperature 36.78 Jonna 36.78 Jonna [facility]) Heart rate 110 /min 110 /min [facility] ([facility]) Diastolic blood 74 mm[Hg] 74 mm[Hg] [facility] ( [facility]) Systolic blood 120 mm[Hg] 120 mm[Hg] [facility] (S nt pressure [facility]) Body weight 118.569 kg 118.569 kg [facility] ([facility]) Body height 165.10 cm 165.10 cm [facility]) Diastolic blood 69 mm[Hg] 69 mm[Hg] [facility] ( [facility]) Systolic blood 108 mm[Hg] 108 mm[Hg] [facility] (S nt pressure [facility]) Oxygen saturation 97 % 97 % [facility] ([facility] in Arterial blood [facility] by Pulse oximetry Center) Body mass index 43.73 kg/m2 Overweight 43.73 kg/m2 [facility] ([facility] (BMI) [Ratio] [facility]) Respiratory rate 18 /min 18 /min [facility]) Body temperature 36.44 Jonna 36.44 Jonna [facility] ([facility]) Heart rate 85 /min 85 /min [facility] ([facility]) Diastolic blood 93 mm[Hg] 93 mm[Hg] [facility] ( [facility] pressure [facility]) Systolic blood 143 mm[Hg] 143 mm[Hg] [facility] Body weight 119.204 kg 119.204 kg [facility]) Body height 165.10 cm 165.10 cm ON LICENSE OF [facility] ([facility]) Patient Treatment Plan of Care Planned Activity Planned Date Details Description Data Source (s) 24 HR Phentermine 3.75 MG 03/13/2020 12:00:00 [facility] ([facility] / topiramate 23 MG AM [facility] Extended Release [facility] ) Capsule [Qsymia] Fluconazole 150 MG Oral 03/13/2020 12:00:00 [facility] ([facility] Tablet [Diflucan] [facility]) 24 HR Phentermine 3.75 MG 03/13/2020 12:00:00 [facility] ([facility] / topiramate 23 MG AM [facility] Extended Release [facility] ) Capsule [Qsymia] Fluconazole 150 MG Oral 03/13/2020 12:00:00 [facility] ([facility] Tablet [Diflucan] [facility]) Lidocaine Hydrochloride 01/24/2020 12:00:00 [facility] ([facility] 30 MG/ML Topical Lotion [facility]) Metronidazole 500 MG Oral 11/29/2019 12:00:00 [facility] Tablet [facility]) Fluconazole 150 MG Oral 11/15/2019 12:00:00 [facility] ([facility] Tablet [facility]) 3 ML liraglutide 6 MG/ML 11/15/2019 12:00:00 [facility] ([facility] Pen Injector [Victoza] [facility]) Easy Touch Hypodermic 11/15/2019 12:00:00 [facility] ([facility] Needle 32 gauge x 5/16" [facility]) 28 mg iron-800 06/25/2019 12:00:00 [facility] ([facility] mcg tablet [facility]) 3 ML liraglutide 6 MG/ML 06/08/2019 12:00:00 [facility] ([facility] Pen Injector [Victoza] [facility]) Fluconazole 150 MG Oral 06/08/2019 12:00:00 [facility] ([facility] Tablet [Diflucan] [facility]) 3 ML liraglutide 6 MG/ML 01/18/2019 12:00:00 [facility] ([facility] Pen Injector [Victoza] [facility]) Easy Touch Hypodermic 11/20/2018 12:00:00 [facility] ([facility] Needle 32 gauge x 5/16" [facility]) Isopropyl Alcohol 0.7 11/20/2018 12:00:00 [facility] ([facility] ML/ML Medicated Pad [facility]) Sertraline 50 MG Oral 02/27/2018 12:00:00 [facility] ([facility] Tablet [Zoloft] [facility])
[2020-04-04] MEDS ORDERED: SODIUM CHLORIDE 1,000 ML IV STA (10:13)
[2020-04-04] MEDS ORDERED: ONDANSETRON 4 MG/2 ML VIAL IVPUSH ONE (10:13)
[2020-04-04] MEDS ORDERED: FAMOTIDINE 20 MG/50 ML IVPB 20 MG/50 ML MG IVPB ONE ×2 (10:13)
[2020-04-04] MEDS ORDERED: ACETAMINOPHEN 1000 MG/100 ML VIAL (NON FORMULARY) IVPB ONE (10:13)
[2020-04-04] MEDS ORDERED: ACETAMINOPHEN INJECTION 100 ML IVPB ONE (10:17)
--- NOTE | 2020-04-04 10:25 | PDOC ---
History of Present Illness - General Chief Complaint: Vomiting/Diarrhea Stated Complaint: ABD PAIN/DIARRHEA Time Seen by Provider: 04/04/20 10:02 History Source: Patient - History of Present Illness Initial Comments: 04/04/20 18:35 29F w/no PMH p/w one year of N/V/abdominal discomfort that worsened over the last 4 days. She reports recent evaluation at [facility] last night where she had normal bloodwork results, but left before the CT was completed due to long wait time for CT. She reports fecal incontinence overnight with ongoing generalized abdominal pain, multiple episodes of nbnb vomiting, prompting her to present to ED today. She denies any fevers, chills, sick contacts. Surgical hx remote cholecystectomy, . She reports passing gas since symptom onset, and watery diarrhea last night. SHe denies any difficulty ambulating, lower extremity weakness or numbness. Past History - Medical History Allergies/Adverse Reactions: Allergies Allergy/AdvReac Type Severity Reaction Status Date / Time oxycodone HCl [From Percocet] Allergy Severe Hives Verified 04/04/20 09:31 shrimp Allergy Severe Hives Verified 04/04/20 09:31 chocolate flavor Allergy Verified 04/04/20 09:31 Home Medications: Ambulatory Orders Cephalexin Monohydrate [Keflex -] 500 mg PO BID 14 Days #28 capsule 04/04/20 Gabapentin 300 mg PO BID 04/04/20 Anemia: No Asthma: No Cancer: No Cardiac Disorders: No CVA: No COPD: No CHF: No Dementia: No Diabetes: Yes (PRE) GI Disorders: No Disorders: No HTN: No Hypercholesterolemia: No Liver Disease: No Psychiatric Problems: Yes (PTSD, Anxiety, Depression) Seizures: No Thyroid Disease: No - Surgical History Abdominal Surgery: No Appendectomy: No Cardiac Surgery: No Cholecystectomy: Yes Lung Surgery: No Neurologic Surgery: No Orthopedic Surgery: Yes (ARTHROSCOPY) - Reproductive History Is Patient Now?: No (#): 3 Para: 2 Therapeutic (s) & number: No - Immunization History Immunization Up to Date: Yes - Psycho-Social/Smoking History Smoking History: Never smoked Have you smoked in the past 12 months: No - Substance Abuse Hx (Audit-C & DAST Scrn) How often the patient has a drink containing alcohol: Never Score: In Men: 4 or > Positive; In Women: 3 or > Positive: 0 Screen Result (Pos requires Nsg. Audit-10AR): Negative In the last yr the pt used illegal drug/Rx for NonMed reason: No Score: Yes response is considered Positive: 0 Screen Result (Positive result requires Nsg. DAST-10): Negative Review of Systems - Review of Systems Able to Perform ROS?: Yes Comments:: 04/04/20 18:37 GENERAL/CONSTITUTIONAL: No fever or chills. No weakness. HEAD, EYES, EARS, NOSE AND THROAT: No change in vision. No ear pain or discharge. No sore throat. CARDIOVASCULAR: No chest pain or shortness of breath RESPIRATORY: No cough, wheezing, or hemoptysis. GASTROINTESTINAL: Nausea, vomiting, diarrhea. No constipation. GENITOURINARY: No dysuria, frequency, or change in urination. MUSCULOSKELETAL: No joint or muscle swelling or pain. No neck or back pain. SKIN: No rash NEUROLOGIC: No headache, vertigo, loss of consciousness, or change in strength/sensation. ENDOCRINE: No increased thirst. No abnormal weight change HEMATOLOGIC/LYMPHATIC: No anemia, easy bleeding, or history of blood clots. ALLERGIC/IMMUNOLOGIC: No hives or skin allergy. *Physical Exam - Vital Signs Last Vital Signs Temp Pulse Resp BP Pulse Ox 97.4 F L 87 18 110/71 100 04/04/20 09:31 04/04/20 09:31 04/04/20 09:31 04/04/20 09:31 04/04/20 09:31 - Physical Exam 04/04/20 18:38 GENERAL: Awake, alert, and fully oriented, in no acute distress HEAD: No signs of trauma, normocephalic, atraumatic EYES: PERRLA, EOMI, sclera anicteric, conjunctiva clear ENT: Auricles normal inspection, hearing grossly normal, nares patent, oropharynx clear without exudates. Moist mucosa NECK: Normal ROM, supple, no lymphadenopathy, JVD, or masses LUNGS: No distress, speaks full sentences, clear to auscultation bilaterally HEART: Regular rate and rhythm, normal S1 and S2, no murmurs, rubs or gallops, peripheral pulses normal and equal bilaterally. ABDOMEN: Diffuse mild tenderness. Soft, normoactive bowel sounds. No guarding, no rebound. No masses EXTREMITIES : Normal inspection, Normal range of motion, no edema. No clubbing or cyanosis NEUROLOGICAL: Cranial nerves II through XII grossly intact. Normal speech, normal gait, no focal sensorimotor deficits SKIN: Warm, Dry, normal turgor, no rashes or lesions noted ED Treatment Course - LABORATORY CBC & Chemistry Diagram: 04/04/20 06:25 04/04/20 06:25 Medical Decision Making - Medical Decision Making 04/04/20 18:38 29F w/no PMH p/w one week of worsening abdominal pain with N/V, diarrhea last night. Ddx partial SBO given acute worsening of symptoms with watery diarrhea. G astroenteritis vs GI infection possible given worsening of N/V with diarrhea. Pancreatitis possible given multiple episodes of vomiting with abdominal pain. Plan: CBC CMP Lipase EKG CXR CT abdomen/pelvis w/contrast UA Urine culture 1L LR Zofran Ofirmev Pepcid Maalox Dispo: Pending imaging, reassessment --- UA - 3+ blood, 2+ leuk esterase Plan for outpatient keflex course pending CT result --- CT - negative for acute process, no obstruction or bowel inflammation noted. Plan for discharge with close PCP, GI follow up with course of abx for UTI. Discharge - Discharge Information Problems reviewed: Yes Clinical Impression/Diagnosis: Gastroenteritis UTI (urinary tract infection) Qualifiers: Urinary tract infection type: acute cystitis Hematuria presence: with hematuria Qualified Code(s): N30.01 - Acute cystitis with hematuria Condition: Stable Disposition: HOME - Admission No - Additional Discharge Information Prescriptions: Cephalexin Monohydrate [Keflex -] 500 mg PO BID 14 Days #28 capsule - Follow up/Referral Referrals: Kallie Hoyos MD [Staff Physician] - - Patient Discharge Instructions Patient Printed Discharge Instructions: DI for Urinary Tract Infection (UTI) Additional Instructions: You were seen in the ER for abdominal pain, nausea, vomiting. Your bloodwork was normal. Your CT scan did not show any signs of problem requiring surgical intervention. You have a severe UTI. Please take the antibiotic as directed for the full course. Return to the ER if you develop worsening pain, high fevers, or are unable to eat or drink due to symptoms. - Post Discharge Activity
[2020-04-04 10:41] LABS: EPI CELLS >36 /uL (0-25.1); HYALINE CASTS 14 /uL (0-3.1); PH,URINE 6.5 (5.0-8.0); URINE APPEARANCE TURBID; URINE BACTERIA 297 /uL (0-1359); URINE BILIRUBIN 1+ (NEGATIVE); URINE COLOR RED; URINE GLUCOSE (UA) NEGATIVE (NEGATIVE); URINE KETONE NEGATIVE (NEGATIVE); URINE LEUK ESTERASE 2+ (NEGATIVE); URINE NITRITE NEGATIVE (NEGATIVE); URINE PROTEIN 2+ (NEGATIVE); URINE RBC 12529 /uL (0-23.9); URINE WBC 324 /uL (0-25.8)
[2020-04-04 11:05] LABS: BASO % 0.5 % (0-2.0); HEMATOCRIT 39.3 % (32.4-45.2); HEMOGLOBIN 12.7 GM/dL (10.7-15.3); LYMPH % 34.9 % (8-40); MCH 28.2 pg (25.7-33.7); MCHC 32.4 g/dl (32.0-36.0); MEAN PLT VOLUME 8.4 fl (7.5-11.1); MONO % 6.8 % (3.8-10.2); NEUT % 54.8 % (42.8-82.8); PLATELET COUNT 291 K/MM3 (134-434); RBC 4.52 M/mm3 (3.60-5.2); RDW 15.1 % (11.6-15.6); WHITE BLOOD COUNT 6.5 K/mm3 (4.0-10.0)
[2020-04-04 11:13] LABS: INR 0.99 (0.83-1.09); PROTHROMBIN TIME (PATIENT) 12.2 SEC (9.7-13.0)
[2020-04-04 11:26] LABS: ALBUMIN 3.4 g/dl (3.4-5.0); BILIRUBIN,TOTAL 0.2 mg/dL (0.2-1); BLOOD UREA NITROGEN 9.9 mg/dL (7-18); CALCIUM 8.8 mg/dL (8.5-10.1); CREATININE 0.6 mg/dL (0.55-1.3); POTASSIUM 4.7 mmol/L (3.5-5.1); TOT PROT 7.3 g/dl (6.4-8.2)
[2020-04-04] MEDS ORDERED: METOCLOPRAMIDE HCL INJECTION 10 MG/2 ML VIAL ONE (11:37)
[2020-04-04] MEDS ORDERED: LORazepam 2 MG/ML SDV VIAL ONE (12:06)
[2020-04-04] MEDS ORDERED: MAG HYDROX/AL HYDROX/SIMETH 30 ML UNIT-DOSE CUP PO ONE (15:09)
[2020-04-04] MEDS ORDERED: MAG HYDROX/AL HYDROX/SIMETH 30 ML UNIT-DOSE CUP ONE (15:57)
--- NOTE | 2020-04-04 16:33 | PDOC ---
Documentation entered by Ronda Calhoun SCRIBE, acting as scribe for Chris Castellanos MD. Chris Castellanos MD: This documentation has been prepared by the Lj perez Ana, SCRIBE, under my direction and personally reviewed by me in its entirety. I confirm that the documentation accurately reflects all work, treatment, procedures, and medical decision making performed by me. Attending Attestation - Resident Resident Name: Marcio Cool - ED Attending Attestation I have performed the following: I have examined & evaluated the patient, The case was reviewed & discussed with the resident, I agree w/resident's findings & plan, Exceptions are as noted - HPI HPI: 04/04/20 10:09 Patient is a 29 year old female presenting to ED with N+V+D and lower abdominal pain. Pt reports chronic lower abdominal pain x 1 year. Denies F/C. States that her pain worsened today and pt began to have vomiting and diarrhea. Denies CP/SOB. Patient denies: any other related symptoms Allergies: oxycodone HCl, shrimp, and chocolate - Physicial Exam PE: 04/04/20 10:10 See resident exam - Medical Decision Making 04/04/20 15:48 29 F with abdominal pain, N+V+D. Suspect gastroenteritis. - Labs - CTAP - GI cocktail 04/04/20 16:[address] unremarkable Pt reassessed - tolerating PO Pt is well appearing, with normal vitals. Clinically stable for DC at this time. I discussed the physical exam findings, ancillary test results and final diagnoses with the patient. I answered all of the patient's questions. The patient was satisfied with the care received and felt comfortable with the discharge plan and treatment plan. The patient agrees to follow up with the primary care physician within 24-72 hours. Discharge - Discharge Information Problems reviewed: Yes Clinical Impression/Diagnosis: Gastroenteritis, Diarrhea UTI (urinary tract infection) Qualifiers: Urinary tract infection type: acute cystitis Hematuria presence: with hematuria Qualified Code(s): N30.01 - Acute cystitis with hematuria Condition: Stable Disposition: HOME - Additional Discharge Information Prescriptions: Cephalexin Monohydrate [Keflex -] 500 mg PO BID 14 Days #28 capsule - Follow up/Referral Referrals: Kallie Hoyos MD [Staff Physician] - - Patient Discharge Instructions Patient Printed Discharge Instructions: DI for Urinary Tract Infection (UTI) Additional Instructions: You were seen in the ER for abdominal pain, nausea, vomiting. Your bloodwork was normal. Your CT scan did not show any signs of problem requiring surgical intervention. You have a severe UTI. Please take the antibiotic as directed for the full course. Return to the ER if you develop worsening pain, high fevers, or are unable to eat or drink due to symptoms. - Post Discharge Activity
[2020-04-04 17:29] VITALS: BP 118/73; PULSE 74; TEMP 97.8
== END 2020-04-04 17:00 | disposition home or self-care (01) ==
LOC: JER 09:29
PROC: 3E033NZ Introduction of Analgesics, Hypnotics, Sedatives into Peripheral Vein, Percutaneous Approach (ICD-10-PCS; principal; 2020-04-04)
PROC: 3E033GC Introduction of Other Therapeutic Substance into Peripheral Vein, Percutaneous Approach (ICD-10-PCS; 2020-04-04)
PROC: 3E0337Z Introduction of Electrolytic and Water Balance Substance into Peripheral Vein, Percutaneous Approach (ICD-10-PCS; 2020-04-04)
DX: K52.9 Noninfective gastroenteritis and colitis, unspecified (principal); N30.01 Acute cystitis with hematuria
CPT/HCPCS: 36415; 74177-TC; 80053; 81003; 83690; 84703; 85025; 85610; 87086; 99285-25; J0131; Q9967

== ENCOUNTER 2021-11-18 11:18 | Emergency (ER) | payer OTHER ==
[2021-11-18 11:39] VITALS: TEMP 97.1; BMI 44.9
[2021-11-18] MEDS ORDERED: KETOROLAC TROMETHAMINE 15 MG/ML VIAL IVPUSH ONE (12:46)
[2021-11-18] MEDS ORDERED: LIDOCAINE 5% TOPICAL PATCH TP ONE (12:46)
[2021-11-18] MEDS ORDERED: LIDOCAINE 5% TOPICAL PATCH ONE (12:51)
[2021-11-18] MEDS ORDERED: KETOROLAC TROMETHAMINE 15 MG/ML VIAL ONE (12:51)
[2021-11-18 14:02] LABS: BASO % 0.8 % (0-2.0); EOS % 2.6 % (0-4.5); HEMATOCRIT 37.1 % (32.4-45.2); HEMOGLOBIN 12.4 GM/dL (10.7-15.3); LYMPH % 44.1 % (8-40); MCH 29.4 pg (25.7-33.7); MCHC 33.5 g/dl (32.0-36.0); MEAN CELL VOLUME 87.9 fl (80-96); MEAN PLT VOLUME 8.5 fl (7.5-11.1); NEUT % 45.5 % (42.8-82.8); PLATELET COUNT 277 10^3/uL (134-434); RBC 4.22 M/mm3 (3.60-5.2); RDW 14.3 % (11.6-15.6); WHITE BLOOD COUNT 6.2 K/mm3 (4.0-10.0)
[2021-11-18 14:10] LABS: INR 1.09 (0.83-1.09); PROTHROMBIN TIME (PATIENT) 12.5 SEC (9.7-13.0)
[2021-11-18 14:13] LABS: ACTIVATED PTT 31.3 SECONDS (25.2-36.5)
[2021-11-18 14:23] LABS: CALCIUM 8.9 mg/dL (8.5-10.1)
[2021-11-18 14:24] LABS: ALBUMIN 3.3 g/dl (3.4-5.0); BLOOD UREA NITROGEN 8.1 mg/dL (7-18)
[2021-11-18 14:27] LABS: CREATININE 0.7 mg/dL (0.55-1.3)
[2021-11-18 14:28] LABS: BILIRUBIN,TOTAL 0.5 mg/dL (0.2-1)
[2021-11-18 14:29] LABS: TOT PROT 6.6 g/dl (6.4-8.2)
[2021-11-18 18:39] VITALS: BP 121/68; PULSE 68
[2021-11-18] MEDS ORDERED: LIDOCAINE PATCH REMOVAL MC ONE (22:00)
== END 2021-11-18 18:10 | disposition home or self-care (01) ==
LOC: JER 11:18
PROC: 3E033GC Introduction of Other Therapeutic Substance into Peripheral Vein, Percutaneous Approach (ICD-10-PCS; principal; 2021-11-18)
DX: R07.9 Chest pain, unspecified (principal)
CPT/HCPCS: 36415; 71045-TC-FY; 71275-TC; 80053; 84484; 84703; 85025; 85379; 85610; 85730; 93005; 93010; 99285-25; Q9967

== ENCOUNTER 2025-01-24 21:05 | Emergency (ER) | payer OTHER ==
[2025-01-24 21:13] VITALS: RESP 18; BMI 42.9
[2025-01-24] MEDS ORDERED: ACETAMINOPHEN INJECTION 100 ML ONE (22:00)
[2025-01-24] MEDS ORDERED: MAG HYDROX/AL HYDROX/SIMETH 30 ML UNIT-DOSE CUP ONE (22:01)
[2025-01-24] MEDS ORDERED: FAMOTIDINE 20 MG/50 ML IVPB 20 MG/50 ML MG IVPB ONE (22:01)
[2025-01-24] MEDS ORDERED: ONDANSETRON 4 MG/2 ML VIAL ONE (22:01)
[2025-01-24] MEDS: MAG HYDROX/AL HYDROX/SIMETH -MYLANTA- ORAL SUSPENSION PO ONE (22:35)
[2025-01-24] MEDS: ONDANSETRON 4 MG/2 ML VIAL IVPB ONE (22:35)
[2025-01-24] MEDS: FAMOTIDINE 20 MG/50 ML IVPB 20 MG/50 ML MG IVPB ONE (22:35)
[2025-01-24] MEDS: LACTATED RINGERS SOLUTION 1000 ML INFUS.BAG IV ONE (22:35)
[2025-01-24 22:40] LABS: MCHC 34.2 g/dl (32.2-35.5); MEAN CELL VOLUME 83.7 fl (79.4-94.8); MEAN PLT VOLUME 9.6 fl (9.4-12.3); RDW 13.2 % (12.1-16.8)
[2025-01-24] MEDS: IOHEXOL (OMNIPAQUE IV) 350 MG/ML - 100 ML BOTTLE PO ONE (22:49)
[2025-01-24] MEDS: ACETAMINOPHEN 1000 MG/100 ML BAG IVPB ONE (22:49)
[2025-01-24 23:03] LABS: CO2 32.0 mmol/L (21-32); GLUCOSE,RANDOM 96.0 mg/dL (74-106)
[2025-01-24 23:06] LABS: CREATININE 0.8 mg/dL (0.55-1.3); SGOT/AST 25.0 U/L (15-37); SGPT/ALT 47.0 U/L (13-61)
[2025-01-24 23:07] LABS: TOT PROT 7.8 g/dl (6.4-8.2)
[2025-01-24 23:09] LABS: ALK PHOS 69.0 U/L (45-117)
[2025-01-24] MEDS ORDERED: POTASSIUM CHLORIDE ORAL LIQUID 20 MEQ/15 ML ONE (23:59)
[2025-01-25] MEDS: POTASSIUM CHLORIDE ORAL LIQUID 20 MEQ/15 ML PO ONE (00:05)
[2025-01-25 01:39] LABS: EPI CELLS >36 /uL (0-25.1); HCG,QUALITATIVE URINE Negative; HYALINE CASTS 2 /uL (0-3.1); URINE APPEARANCE CLOUDY; URINE BACTERIA 1072 /uL (0-1359); URINE BILIRUBIN NEGATIVE (NEGATIVE); URINE COLOR DK YELLOW; URINE GLUCOSE (UA) NEGATIVE (NEGATIVE); URINE KETONE 2+ (NEGATIVE); URINE LEUK ESTERASE NEGATIVE (NEGATIVE); URINE NITRITE NEGATIVE (NEGATIVE); URINE PROTEIN 1+ (NEGATIVE); URINE UROBILINOGEN 1.0 mg/dL (0.2-1.0); URINE WBC 17 /uL (0-25.8)
[2025-01-25 02:14] VITALS: BP 137/72; PULSE 60; TEMP 98.3
[2025-01-25 08:26] LABS: URINE RBC 33.5 /uL (0-23.9)
[2025-01-27 14:26] LABS: HIV INTERPRETATION NEGATIVE (NEGATIVE)
[2025-01-27 21:44] LABS: HCV DIAGNOSTIC IN-HOUSE W/RFLX NON-REACTIVE (NONREACTIVE)
== END 2025-01-25 03:15 | disposition home or self-care (01) ==
LOC: JER 21:05
PROC: 3E033GC Introduction of Other Therapeutic Substance into Peripheral Vein, Percutaneous Approach (ICD-10-PCS; principal; 2025-01-24)
PROC: 3E033NZ Introduction of Analgesics, Hypnotics, Sedatives into Peripheral Vein, Percutaneous Approach (ICD-10-PCS; 2025-01-24)
PROC: 3E033GC Introduction of Other Therapeutic Substance into Peripheral Vein, Percutaneous Approach (ICD-10-PCS; 2025-01-24)
DX: R11.2 Nausea with vomiting, unspecified (principal); R10.84 Generalized abdominal pain; K59.00 Constipation, unspecified; J02.9 Acute pharyngitis, unspecified
CPT/HCPCS: 36415; 74177-TC; 80053; 81003; 83690; 84703; 85027; 86803; 87086; 87389; 87637-QW; 93005; 93010; 96365; 96375; 99285-25